=== PATIENT | female | born 1995 | race Caucasian/White ===

== ENCOUNTER 2019-06-16 19:47 | Observation (INO) | payer BC, SELFPAY ==
--- NOTE | 2019-06-16 19:47 | OBADM ---
This patient, Rosana Marrero, admitted to the OB room OB Post 115 for observation. Patient/family oriented to hospital policies and general routines including ID bracelet, bed and alarms, visiting hours, pain management, procedures, bathroom and other care routines, personal items, smoking policy, room service/diet, and visiting hours. Patient/Family are encouraged to report perceived risks to care and to ask questions if they do not understand what they are told or what they should do.
[2019-06-16 19:50] VITALS: BMI 39.5
[2019-06-16 20:00] VITALS: RESP 20; TEMP 36.8
[2019-06-16 20:29] VITALS: BP 146/85; PULSE 82
[2019-06-16 20:46] VITALS: BP 145/77; PULSE 79
[2019-06-16 22:03] VITALS: BP 144/81; PULSE 78
[2019-06-16 22:31] VITALS: BP 121/71; PULSE 92
--- NOTE | 2019-07-13 17:19 | PM.OBTRLD ---
OB - Triage/Final Diagnosis Visit Information Date of evaluation: 06/16/19 Final Diagnosis (1) Fall (on) (from) other stairs and steps, sequela: Code(s): W10.8XXS - Fall (on) (from) other stairs and steps, sequela Status: Acute
== END 2019-06-16 23:13 | disposition home or self-care (01) ==
PROVIDERS: Admitting Provider Obstetrics & Gynecology; PCP Physician Assistant; Visit Provider Obstetrics & Gynecology
DX: O99.89 Other specified diseases and conditions complicating pregnancy, childbirth and the puerperium (principal); Z3A.30 30 weeks gestation of pregnancy; W10.9XXA Fall (on) (from) unspecified stairs and steps, initial encounter
CPT/HCPCS: G0378; G0379

== ENCOUNTER 2019-07-07 15:41 | Observation (INO) | payer BC, SELFPAY ==
[2019-07-07] VITALS (13 sets, daily range): BP systolic 140–181; BP diastolic 73–117; PULSE 74–95
[2019-07-07 16:32] LABS: Basophils Percent Auto 0.2 % (0.2-1.2); Eosinophils Absolute Auto 0.1 K/mm3 (0-0.3); Eosinophils Percent Auto 0.6 % (0-4.4); Hematocrit 37.1 % (37.0-47.0); Immature Granulocyte Absolute 0.15 K/mm3 (0.00-0.031); Immature Granulocyte Percent A 1.1 % (0-0.5); Lymphocytes Absolute Auto 2.25 K/mm3 (0.9-3.2); Lymphocytes Percent Auto 16.8 % (18.3-44.2); Mean Corpuscular HGB Conc 32.3 g/dl (32-36); Mean Corpuscular Hemoglobin 28.4 pg (26-34); Mean Corpuscular Volume 87.9 fl (80-100); Mean Platelet Volume 11.1 fl (7.4-10.4); Monocytes Absolute Auto 1.2 K/mm3 (0.1-0.6); Monocytes Percent Auto 8.9 % (2.6-8.5); Neutrophils Absolute Auto 9.7 K/mm3 (1.3-6.7); Neutrophils Percent Auto 72.4 % (45.5-73.1); Platelet Count Result 207 k/mm3 (150-375); Red Blood Count 4.22 M/mm3 (4.2-5.4); Red Cell Distribution Width 14.4 % (11.5-14.5); White Blood Count 13.4 K/mm3 (4.5-10.0)
[2019-07-07] MEDS: LABETALOL HCL 100 MG TABLET PO (16:40)
[2019-07-07 16:47] LABS: Add Urine Microscopic? YES; Appearance Urine Cloudy (Clear); Bacteria Urine 4+ /hpf; Bilirubin Urine Negative (Negative); Blood Urine 1+ (Negative); Budding Yeast Urine Present /hpf; Color Urine Yellow (Yellow); Glucose Urine UA Negative (Negative); Ketones Urine Negative (Negative); Leukocyte Esterase Ur Negative LEU/UL (NEGATIVE); Mucus Urine Rare /lpf; Nitrate Urine Negative (Negative); Protein Urine 3+ mg/dL (Negative); Specific Grav Ur 1.024 (1.001-1.035); Squamous Epithelial Cell Urine Many /hpf (Few); Urobilinogen Urine Negative mg/dL (<2.0); WBC Clumps Urine Present /HPF; WBC Urine 16-20 /hpf (0-3)
[2019-07-07 16:52] LABS: Alanine Aminotransferase 13 U/L (4-35); Albumin Level 2.8 g/dL (3.5-5.1); Alkaline Phosphatase 128 U/L (38-126); Aspartate Amino Transferase 17 U/L (14-36); Bilirubin,Total 0.1 mg/dL (0.2-1.3); Blood Urea Nitrogen 10 mg/dL (7-17); Calcium 9.3 mg/dL (8.4-10.2); Carbon Dioxide 23 mmol/L (22-30); Chloride 110 mmol/L (98-107); Estimated Glomerular Filt Rate > 60; Glucose 67 mg/dL (65-105); Potassium 4.2 mmol/L (3.4-5.0); Sodium 134 mmol/L (137-145); Uric Acid 6.3 mg/dL (2.5-7.5)
[2019-07-07 16:58] LABS: Creatinine Urine 136.7 mg/dL
[2019-07-07 17:07] LABS: Total Protein Urine Random 479 mg/dL
--- NOTE | 2019-07-07 17:08 | OBADM ---
This patient, Rosana Marrero, admitted to the OB room OB Post 115 for observation. Patient is oriented to hospital policies and general routines including ID bracelet, bed and alarms, visiting hours, pain management, procedures, bathroom and other care routines, personal items, smoking policy, room service/diet, call light, and visiting hours. Patient is encouraged to report perceived risks to care and to ask questions if she does not understand what she are told or what she should do.
[2019-07-07] MEDS: BETAMETHASONE SOD PHOS/ACETATE 30 MG/5 ML VIAL 12 MG IM (18:03)
[2019-07-07] MEDS: CALCIUM CARBONATE (TUMS) 500 MG (200 MG ELEMENTAL) PO (18:25)
[2019-07-08] VITALS (7 sets, daily range): BP systolic 130–158; BP diastolic 71–92; PULSE 76–104; RESP 18; TEMP 36.9
--- NOTE | 2019-07-08 04:22 | PC.NURSE ---
0240- S Macario GODINEZ phoned in for status. Report given. Orders received to let patient rest the remainder of night and to recheck blood pressure in the morning.
[2019-07-08 09:06] LABS: Basophils Percent Auto 0.2 % (0.2-1.2); Hematocrit 37.9 % (37.0-47.0); Hemoglobin 12.4 g/dL (12.0-15.0); Immature Granulocyte Absolute 0.23 K/mm3 (0.00-0.031); Immature Granulocyte Percent A 1.3 % (0-0.5); Lymphocytes Absolute Auto 1.17 K/mm3 (0.9-3.2); Lymphocytes Percent Auto 6.6 % (18.3-44.2); Mean Corpuscular HGB Conc 32.7 g/dl (32-36); Mean Corpuscular Hemoglobin 28.8 pg (26-34); Mean Corpuscular Volume 88.1 fl (80-100); Mean Platelet Volume 11.4 fl (7.4-10.4); Monocytes Absolute Auto 0.7 K/mm3 (0.1-0.6); Monocytes Percent Auto 3.7 % (2.6-8.5); Neutrophils Absolute Auto 15.6 K/mm3 (1.3-6.7); Neutrophils Percent Auto 88.2 % (45.5-73.1); Nucleated Red Blood Cells Perc 0.1 % (0.0-0.2); Platelet Count Result 218 k/mm3 (150-375); Red Cell Distribution Width 14.6 % (11.5-14.5); White Blood Count 17.7 K/mm3 (4.5-10.0)
[2019-07-08 09:15] LABS: Potassium 4.5 mmol/L (3.4-5.0)
[2019-07-08 09:25] LABS: Alanine Aminotransferase 15 U/L (4-35); Albumin Level 2.7 g/dL (3.5-5.1); Alkaline Phosphatase 127 U/L (38-126); Aspartate Amino Transferase 17 U/L (14-36); Bilirubin,Total 0.1 mg/dL (0.2-1.3); Blood Urea Nitrogen 14 mg/dL (7-17); Calcium 9.2 mg/dL (8.4-10.2); Carbon Dioxide 19 mmol/L (22-30); Chloride 108 mmol/L (98-107); Estimated Glomerular Filt Rate > 60; Glucose 114 mg/dL (65-105); Sodium 135 mmol/L (137-145); Uric Acid 7.2 mg/dL (2.5-7.5)
--- NOTE | 2019-07-08 10:03 | PM.IMHP ---
H&P: HPI History of Present Illness Chief complaint: blood pressure Narrative: Rosana Marrero is a 24 year old female, G 2 P0, who was sent to on 07/07/2019 after having elevated pressures at the office. Upon arrival pt had 2 severe range pressures and was given 100mg labetalol while IV access was being attained. Labs reviewed and uric acid elevated, protein creatinine ratio >3.0. Pt remains asymptomatic with pressures overnight in the 130-140/80-90's. Upon awakening pressures back up to 150/90's. Pt primary physician is Dr. Hong. Review of Systems Review of Systems: All systems reviewed & are unremarkable except as noted in HPI and below Constitutional: Constitutional: Reports as per HPI Cardiovascular: Cardiovascular: Reports as per HPI Respiratory: Respiratory: Reports as per HPI Gastrointestinal: Gastrointestinal: Reports as per HPI Genitourinary: Genitourinary: Reports as per HPI Musculoskeletal: Musculoskeletal: Reports as per HPI Psychiatric: Psychiatric: Reports as per HPI [facility] Family History Family History (Updated 01/30/15 @ 10:13 by DOCTOR UNKNOWN) Mother Family history of thyroid disease Other Diabetes mellitus Family history of cardiovascular disease Family history of malignant neoplasm Hypertension Social History Social History Smoking status: Never smoker Alcohol intake: never Meds Home Medications and Allergies Home Medications Medication Instructions Recorded Confirmed Type 400 mcg PO DAILY 06/16/19 06/16/19 History Allergies Allergy/AdvReac Type Severity Reaction Status Date / Time No Known Allergies Allergy Unverified 08/11/11 12:54 Vital Signs Vital Signs - 24 hr 07/07/19 15:57 07/07/19 15:59 07/07/19 16:16 Temperature Pulse Rate 82 83 92 Respiratory Rate Blood Pressure 181/117 H 171/89 H 165/101 H 07/07/19 16:30 07/07/19 16:59 07/07/19 17:30 Temperature Pulse Rate 83 86 76 Respiratory Rate Blood Pressure 162/102 H 151/90 H 155/101 H 07/07/19 18:01 07/07/19 19:51 07/07/19 20:10 Temperature Pulse Rate 74 88 83 Respiratory Rate Blood Pressure 153/83 H 160/106 H 156/93 H 07/07/19 20:15 07/07/19 22:06 07/07/19 22:15 Temperature Pulse Rate 84 95 90 Respiratory Rate Blood Pressure 156/94 H 155/104 H 147/95 H 07/07/19 23:49 07/08/19 01:50 07/08/19 07:20 Temperature 36.9 C Pulse Rate 86 76 84 Respiratory Rate 18 Blood Pressure 140/73 133/72 137/80 07/08/19 09:43 Temperature Pulse Rate 83 Respiratory Rate Blood Pressure 158/92 H Exam Const: General: no acute distress Eyes: General: appearance normal, both eyes and all related structures Resp: Auscultation: clear to auscultation bilaterally Cardio: Rate: regular rate GI: GI Palp: Yes Soft to palpation : External Female Exam: normal external appearance Skin: General skin exam: normal color Extrem: Left lower extremity: ankle and foot (2+ bilateral edema) Psych: Mental Status: mental status grossly normal Affect: normal affect H&P: Results Labs Labs: Short CBC 07/07/19 07/08/19 Range/Units 16:16 08:55 WBC 13.4 H 17.7 H (4.5-10.0) K/mm3 Hgb 12.0 12.4 (12.0-15.0) g/dL Hct 37.1 37.9 (37.0-47.0) % Plt Count 207 218 (150-375) k/mm3 BMP 07/07/19 07/08/19 16:16 08:55 Sodium 134 L 135 L Potassium 4.2 4.5 Chloride 110 H 108 H Carbon Dioxide 23 19 L BUN 10 14 Creatinine 0.70 0.70 Glucose 67 114 H Calcium 9.3 9.2 Liver Function 07/07/19 07/08/19 Range/Units 16:16 08:55 Total Bilirubin 0.1 L 0.1 L (0.2-1.3) mg/dL AST 17 17 (14-36) U/L ALT 13 15 (4-35) U/L Alkaline Phosphatase 128 H 127 H (38-126) U/L Albumin 2.8 L 2.7 L (3.5-5.1) g/dL Urine 07/07/19 Range/Units 16:16 Urine Color Yellow (Yellow) Urine Appearance Cloudy H (Clear) Urine pH 6.0 (5.0-9.0) Ur Specific [place] 1.024 (1.001-1.035) Urine Prot
[2019-07-08] MEDS: BETAMETHASONE SOD PHOS/ACETATE 30 MG/5 ML VIAL 12 MG IM (17:40)
--- NOTE | 2019-07-08 17:52 | PC.NURSE ---
6800- Spoke with Ayse Sorto CNM, BP's reviewed. Orders to discharge patient home with 24 hour urine and Precautions.
== END 2019-07-08 17:45 | disposition home or self-care (01) ==
LOC: ANHOBOP 15:47 → ANHOBPP 15:48 → ANHOBOP 16:37 → ANHOBPP 16:37
PROVIDERS: Advanced Practice Midwife; Admitting Provider Obstetrics & Gynecology; PCP Physician Assistant; Visit Provider Obstetrics & Gynecology
DX: O14.03 Mild to moderate pre-eclampsia, third trimester (principal); Z3A.33 33 weeks gestation of pregnancy
CPT/HCPCS: 36415; 59025; 80053; 81001; 82570; 84156; 84550; 85025; 87086; 87088; 96372; A9270; G0378; G0379; J0702

== ENCOUNTER 2019-07-09 11:45 | Outpatient (CLI) | payer BC, SELFPAY ==
[2019-07-09 11:59] VITALS: BMI 20.7
[2019-07-09 12:46] LABS: Collection Time Urine 24 HOURS
[2019-07-09 12:50] LABS: Total Volume 24 Hour Urine 850 ml
[2019-07-09 12:51] LABS: Patient Weight 117 Lbs
[2019-07-09 13:06] LABS: Creatinine Clearance Urine 180.4 ml/min (75-125); Creatinine Urine 189.8 mg/dL; Total Protein Urine Random 126 mg/dL
[2019-07-09 13:13] LABS: Total Protein Urine 24 Hr 1071 MG/DAY (28-141)
== END 2019-07-09 11:46 | disposition home or self-care (01) ==
LOC: ANHOBOP 11:53
PROVIDERS: PCP Physician Assistant; Visit Provider Obstetrics & Gynecology
DX: O13.9 Gestational [pregnancy-induced] hypertension without significant proteinuria, unspecified trimester (principal); Z3A.00 Weeks of gestation of pregnancy not specified
CPT/HCPCS: 81050; 82575; 84156

== ENCOUNTER 2019-07-10 17:04 | Inpatient (IN) | payer BC, MEDICAID, SELFPAY ==
[2019-07-10] VITALS (24 sets, daily range): BP systolic 148–177; BP diastolic 84–108; PULSE 58–94; BMI 48.0
[2019-07-10 18:34] LABS: Hemoglobin 11.3 g/dL (12.0-15.0); Mean Corpuscular HGB Conc 32.3 g/dl (32-36); Mean Corpuscular Hemoglobin 28.9 pg (26-34); Mean Corpuscular Volume 89.5 fl (80-100); Mean Platelet Volume 11.4 fl (7.4-10.4); Platelet Count Result 212 k/mm3 (150-375); Red Blood Count 3.91 M/mm3 (4.2-5.4); Red Cell Distribution Width 14.6 % (11.5-14.5); White Blood Count 15.8 K/mm3 (4.5-10.0)
[2019-07-10 18:41] LABS: Alanine Aminotransferase 21 U/L (4-35); Albumin Level 2.6 g/dL (3.5-5.1); Alkaline Phosphatase 120 U/L (38-126); Aspartate Amino Transferase 25 U/L (14-36); Bilirubin,Total 0.2 mg/dL (0.2-1.3); Blood Urea Nitrogen 15 mg/dL (7-17); Calcium 8.4 mg/dL (8.4-10.2); Carbon Dioxide 23 mmol/L (22-30); Chloride 110 mmol/L (98-107); Estimated Glomerular Filt Rate > 60; Glucose 68 mg/dL (65-105); Potassium 3.8 mmol/L (3.4-5.0); Sodium 133 mmol/L (137-145); Uric Acid 7.6 mg/dL (2.5-7.5)
--- NOTE | 2019-07-10 19:05 | LDADM ---
This patient, Rosana Marrero, was admitted to Labor/Delivery/Recovery 105 on 07/10/19 at 19:05. Plans for labor, pain management and were discussed with patient. Patient/family oriented to hospital policies and general routines including ID bracelet, bed and alarms, visiting hours, pain management, procedures, bathroom and other care routines, personal items, smoking policy, room service/diet and guest tray routines, security routines, and visiting hours. Patient/Family are encouraged to report perceived risks to care and to ask questions if they do not understand what they are told or what they should do. See OBIX for further documentation.
[2019-07-10 19:21] LABS: Band Neutrophils Percent 2 % (0-6); Lymphocytes Absolute Manual 1.89 K/mm3 (1.1-4.5); Monocytes Percent Manual 7 % (3-9); Neutrophils Absolute Manual 12.79 K/mm3 (1.7-7.2); Neutrophils Percent Manual 79 % (46-73); Platelet Estimate Adequate (Adequate); Total Cells Counted 100
[2019-07-10 19:22] LABS: Hypochromasia 1+ (NORMAL)
[2019-07-10] MEDS: MAGNESIUM SULF 4 GM/WATER100ML 4 GM/100 ML BAG IVPB (20:35)
[2019-07-10] MEDS: LACTATED RINGERS 1,000 ML 75 ML IV CONT (20:35)
[2019-07-10] MEDS: DINOPROSTONE 10 MG VAG INSERT VAGINAL (20:42)
[2019-07-10] MEDS: MAGNESIUM SULF 20GM/WATER500ML 500 ML 50 MG IV CONT (22:09)
[2019-07-11] VITALS (169 sets, daily range): BP systolic 131–174; BP diastolic 73–123; PULSE 72–116; RESP 16; TEMP 36.7–37.4; O2SAT 92–100
[2019-07-11 05:38] LABS: Basophils Absolute Auto 0.1 K/mm3 (0.0-0.1); Basophils Percent Auto 0.5 % (0.2-1.2); Eosinophils Percent Auto 0.1 % (0-4.4); Hematocrit 37.5 % (37.0-47.0); Hemoglobin 12.1 g/dL (12.0-15.0); Immature Granulocyte Absolute 0.94 K/mm3 (0.00-0.031); Immature Granulocyte Percent A 5.8 % (0-0.5); Lymphocytes Absolute Auto 2.16 K/mm3 (0.9-3.2); Lymphocytes Percent Auto 13.3 % (18.3-44.2); Mean Corpuscular HGB Conc 32.3 g/dl (32-36); Mean Corpuscular Hemoglobin 28.7 pg (26-34); Mean Corpuscular Volume 88.9 fl (80-100); Mean Platelet Volume 11.4 fl (7.4-10.4); Monocytes Absolute Auto 1.3 K/mm3 (0.1-0.6); Monocytes Percent Auto 8.1 % (2.6-8.5); Neutrophils Absolute Auto 11.7 K/mm3 (1.3-6.7); Neutrophils Percent Auto 72.2 % (45.5-73.1); Nucleated Red Blood Cells Absolute Auto 0.1 K/mm3 (0.0-0.012); Nucleated Red Blood Cells Perc 0.4 % (0.0-0.2); Platelet Count Result 227 k/mm3 (150-375); Red Blood Count 4.22 M/mm3 (4.2-5.4); Red Cell Distribution Width 14.6 % (11.5-14.5); White Blood Count 16.2 K/mm3 (4.5-10.0)
[2019-07-11 05:49] LABS: Alanine Aminotransferase 45 U/L (4-35); Albumin Level 2.7 g/dL (3.5-5.1); Alkaline Phosphatase 143 U/L (38-126); Aspartate Amino Transferase 49 U/L (14-36); Bilirubin,Total 0.2 mg/dL (0.2-1.3); Blood Urea Nitrogen 15 mg/dL (7-17); Calcium 7.8 mg/dL (8.4-10.2); Carbon Dioxide 22 mmol/L (22-30); Chloride 108 mmol/L (98-107); Estimated CRCL calculation 122 ml/min; Estimated Glomerular Filt Rate > 60; Glucose 86 mg/dL (65-105); Potassium 3.9 mmol/L (3.4-5.0); Sodium 132 mmol/L (137-145); Uric Acid 7.8 mg/dL (2.5-7.5)
--- NOTE | 2019-07-11 07:48 | PM.IMHP ---
H&P: HPI History of Present Illness Chief complaint: Elevated BP Narrative: Rosana Marrero is a 24 year old female 1 at 34 weeks gestation who presented to the office yesterday with severe range blood pressures. She also reported headache. She reported good movement. She denies any contractions, loss of fluid, vaginal bleeding. She was seen 4-5 days earlier for elevated blood pressures and was admitted for observation. She was given steroids at that admission. She was discharged with short-term follow-up. Then she presented yesterday. Review of Systems Constitutional: Constitutional: Reports no additional constitutional complaints, Denies fatigue, Denies headache(s), Denies lethargy and Denies weakness Eyes: Eyes: Reports no additional eye complaints, Denies blurry vision and Denies photophobia ENT: Reports as per HPI, Denies headache(s) and Denies neck pain Cardiovascular: Cardiovascular: Denies chest pain, Denies diaphoresis, Denies leg edema, Denies palpitations and Denies dyspnea Respiratory: Respiratory: Denies hemoptysis, Denies dyspnea and Denies wheezing Gastrointestinal: Gastrointestinal: Denies abdominal pain, Denies melena, Denies bloating, Denies hematochezia, Denies nausea and Denies vomiting Genitourinary: Genitourinary: Reports no additional female genitourinary complaints Musculoskeletal: Musculoskeletal: Denies joint swelling, Denies neck pain, Denies numbness and Denies stiffness Neurologic: Denies Abnormal speech present, Denies confusion, Denies numbness and Denies weakness Psychiatric: Psychiatric: Denies anxiety, Denies confusion, Denies depression, Denies homicidal ideation and Denies suicidal ideation Endocrine: Endocrine: Denies fatigue and Denies palpitations Allergic/Immunologic: Allergic/Immunologic: Denies wheezing [facility] Family History Family History (Updated 01/30/15 @ 10:13 by DOCTOR UNKNOWN) Mother Family history of thyroid disease Other Diabetes mellitus Family history of cardiovascular disease Family history of malignant neoplasm Hypertension Social History Social History Smoking status: Never smoker Alcohol intake: never Substance use: never Gender identity (if verbalized by the patient): Female Spiritual care concerns: No Meds Home Medications and Allergies Home Medications Medication Instructions Recorded Confirmed Type 400 mcg PO DAILY 06/16/19 07/10/19 History Allergies Allergy/AdvReac Type Severity Reaction Status Date / Time No Known Allergies Allergy Unverified 08/11/11 12:54 Vital Signs Vital Signs - 24 hr 07/10/19 17:20 07/10/19 17:30 07/10/19 17:45 Temperature Pulse Rate 74 70 69 Respiratory Rate Blood Pressure 173/108 H 165/105 H 151/101 H Blood Pressure [Left Arm] 07/10/19 18:00 07/10/19 18:07 07/10/19 18:15 Temperature Pulse Rate 64 74 61 Respiratory Rate Blood Pressure 148/105 H 161/94 H Blood Pressure [Left Arm] 173/108 H 07/10/19 18:31 07/10/19 18:46 07/10/19 19:01 Temperature Pulse Rate 65 60 58 L Respiratory Rate Blood Pressure 168/104 H 157/93 H 150/99 H Blood Pressure [Left Arm] 07/10/19 19:16 07/10/19 19:46 07/10/19 20:31 Temperature Pulse Rate 65 77 78 Respiratory Rate Blood Pressure 158/103 H 177/102 H 170/106 H Blood Pressure [Left Arm] 07/10/19 21:01 07/10/19 21:16 07/10/19 21:31 Temperature Pulse Rate 80 83 83 Respiratory Rate Blood Pressure 157/89 H 161/91 H 162/91 H Blood Pressure [Left Arm] 07/10/19 21:46 07/10/19 22:01 07/10/19 22:16 Temperature Pulse Rate 79 75 77 Respiratory Rate Blood Pressure 158/90 H 163/96 H 158/94 H Blood Pressure [Left Arm] 07/10/19 22:31 07/10/19 22:46 07/10/19 23:01 Temperature Pulse Rate 76 89 83 Respiratory Rate Blood Pressure 164/91 H 159/94 H 159/93 H Blood Pressure [Left Arm] 07/10/19 23:16 07/10/19 23:31 07/10/19 2
[2019-07-11] MEDS: AMPICILLIN 2 GM/NS 100 ML 2 GM/100 ML BAG IVPB (08:00)
[2019-07-11] MEDS: LACTATED RINGERS 1,000 ML 75 ML IV CONT ×2 (08:00→16:37)
[2019-07-11] MEDS: MAGNESIUM SULF 20GM/WATER500ML 500 ML 50 MG IV CONT ×2 (08:02→18:26)
[2019-07-11] MEDS: NIFEdipine 30 MG TAB.ER.24 60 MG PO (08:03)
[2019-07-11] MEDS: ACETAMINOPHEN 500 MG TABLET 1000 MG PO (08:48)
[2019-07-11] MEDS: OXYTOCIN 30 UNITS/NS 500 ML 30 UNITS/500 ML BAG 125 UNITS IV CONT ×2 (08:55→17:59)
[2019-07-11] MEDS: LABETALOL HCL INJ 100 MG/20 ML VIAL 20 MG IV PUSH (10:19)
--- NOTE | 2019-07-11 10:31 | WPDANESEPP ---
Anes - Eval Pre Procedure Procedure: labor epidural Date/Time: 07/11/19 10:31 Surgeon: juice Preop Diagnosis: labor pain Pre Op Diagnosis: Elevated BP Patient Data Age: 24 Gender: F Height: 1.6 m Weight: 123 kg Last Vital Signs Temp 37.0 C 07/11/19 07:54 Pulse 85 07/11/19 10:23 Resp 16 07/11/19 04:30 BP 159/93 H 07/11/19 10:23 Allergies Allergy/AdvReac Type Severity Reaction Status Date / Time No Known Allergies Allergy Unverified 08/11/11 12:54 Home Medications Medication Instructions Recorded Confirmed Type 400 mcg PO DAILY 06/16/19 07/10/19 History Laboratory Tests 07/10/19 07/10/19 07/10/19 18:23 18:23 20:22 WBC 15.8 K/mm3 H K/mm3 (4.5-10.0) RBC 3.91 M/mm3 L M/mm3 (4.2-5.4) Hgb 11.3 g/dL L g/dL (12.0-15.0) Hct 35.0 % L % (37.0-47.0) MCV 89.5 fl fl (80-100) MCH 28.9 pg pg (26-34) MCHC 32.3 g/dl g/dl (32-36) RDW 14.6 % H % (11.5-14.5) Plt Count 212 k/mm3 k/mm3 (150-375) MPV 11.4 fl H fl (7.4-10.4) Immature Gran % (Auto) Not Reportable Neut % (Auto) Not Reportable Lymph % (Auto) Not Reportable [place] % (Auto) Not Reportable Eos % (Auto) Not Reportable Baso % (Auto) Not Reportable Lymph # (Auto) Not Reportable [place] # (Auto) Not Reportable Eos # (Auto) Not Reportable Baso # (Auto) Not Reportable Abs Immat Gran (auto) Not Reportable Absolute Neuts (auto) Not Reportable Absolute Nucleated RBC Not Reportable Total Counted 100 Neutrophils % (Manual) 79 % H % (46-73) Band Neutrophils % 2 % % (0-6) Lymphocytes % (Manual) 12.0 % L % (18-44) Monocytes % (Manual) 7 % % (3-9) Nucleated RBC % Not Reportable Abs Neuts (Manual) 12.79 K/mm3 H K/mm3 (1.7-7.2) Abs Lymphs (Manual) 1.89 K/mm3 K/mm3 (1.1-4.5) Abs Monocytes (Manual) 1.10 K/mm3 H K/mm3 (0.1-0.90) Platelet Estimate Adequate (Adequate) Hypochromasia 1+ (NORMAL) Sodium 133 mmol/L L mmol/L (137-145) Potassium 3.8 mmol/L mmol/L (3.4-5.0) Chloride 110 mmol/L H mmol/L (98-107) Carbon Dioxide 23 mmol/L mmol/L (22-30) BUN 15 mg/dL mg/dL (7-17) Creatinine 0.70 mg/dL mg/dL (0.7-1.0) Estim Creat Clear Calc Not Reportable Estimated GFR > 60 (59 - ) Glucose 68 mg/dL mg/dL (65-105) Uric Acid 7.6 mg/dL H mg/dL (2.5-7.5) Calcium 8.4 mg/dL mg/dL (8.4-10.2) Total Bilirubin 0.2 mg/dL mg/dL (0.2-1.3) AST 25 U/L U/L (14-36) ALT 21 U/L U/L (4-35) Alkaline Phosphatase 120 U/L U/L (38-126) Total Protein 6.0 g/dL L g/dL (6.3-8.2) Albumin 2.6 g/dL L g/dL (3.5-5.1) RPR Pending Blood Type Antibody Screen 07/10/19 07/11/19 07/11/19 20:22 05:15 05:15 WBC 16.2 K/mm3 H K/mm3 (4.5-10.0) RBC 4.22 M/mm3 M/mm3 (4.2-5.4) Hgb 12.1 g/dL g/dL (12.0-15.0) Hct 37.5 % % (37.0-47.0) MCV 88.9 fl fl (80-100) MCH 28.7 pg pg (26-34) MCHC 32.3 g/dl g/dl (32-36) RDW 14.6 % H % (11.5-14.5) Plt Count 227 k/mm3 k/mm3 (150-375) MPV 11.4 fl H fl (7.4-10.4) Immature Gran % (Auto) 5.8 % H % (0-0.5) Neut % (Auto) 72.2 % % (45.5-73.1) Lymph % (Auto) 13.3 % L % (18.3-44.2) [place] % (Auto) 8.1 % % (2.6-8.5) Eos % (Auto) 0.1 % % (0-4.4) Baso % (Auto) 0.5 % % (0.2-1.2) Lymph # (Auto) 2.16 K/mm3 K/mm3 (0.9-3.2) [place] # (Auto) 1.3 K/mm3 H K/mm3 (0.
[2019-07-11 11:09] LABS: Rapid Plasma Reagin Non-Reactive (NonReactive)
[2019-07-11] MEDS: AMPICILLIN 1 GM/NS 50 ML 1 GM/50 ML BAG IVPB ×2 (12:22→16:37)
[2019-07-11 12:34] LABS: Mean Platelet Volume 10.9 fl (7.4-10.4); Platelet Count Result 105 k/mm3 (150-375)
[2019-07-11 16:49] LABS: Mean Platelet Volume 11.3 fl (7.4-10.4); Platelet Count Result 260 k/mm3 (150-375)
[2019-07-11 17:08] LABS: Alanine Aminotransferase 53 U/L (4-35); Albumin Level 2.9 g/dL (3.5-5.1); Alkaline Phosphatase 168 U/L (38-126); Aspartate Amino Transferase 47 U/L (14-36); Bilirubin,Total 0.4 mg/dL (0.2-1.3); Blood Urea Nitrogen 14 mg/dL (7-17); Calcium 7.1 mg/dL (8.4-10.2); Carbon Dioxide 20 mmol/L (22-30); Chloride 105 mmol/L (98-107); Estimated CRCL calculation 122 ml/min; Estimated Glomerular Filt Rate > 60; Glucose 88 mg/dL (65-105); Magnesium 6.2 mg/dL (1.6-2.3); Sodium 129 mmol/L (137-145); Uric Acid 7.8 mg/dL (2.5-7.5)
--- NOTE | 2019-07-11 17:46 | PM.OBPRVD ---
OB - Delivery Note Procedure Delivery date: 07/11/19 events: Pre-Eclampsia Intrapartal events: None and Severe Preeclampsia Induction method: none (Cervidil), AROM and per pitocin protocol Delivery monitor: external FHT and external uterine Route of delivery: Episiotomy description: None Laceration description: Perineal - 2nd Degree Delivery repair: vicryl Specimen: Yes Estimated blood loss (mL): 375 Anesthesia type: Epidural Disposition: floor [place] Baby Date of : 07/11/19 Time of : 17:32 Weeks of gestation at delivery: 34 gender: Female Weight (pounds): 4 Weight (ounces): 7 Placenta delivery description: Spontaneous cord vessel description: 3 Vessels score one minute: 8 score five minutes: 9
--- NOTE | 2019-07-11 20:27 | PC.NURSE ---
Patient transferred to post room #282 via wheelchair. Support person present. Oriented to unit, room, information board, rooming in, admission packet and security measures. Patient verbalizes understanding. warming up after bath.
[2019-07-11] MEDS: IBUPROFEN 600 MG TABLET PO (22:30)
[2019-07-12] VITALS (8 sets, daily range): BP systolic 141–162; BP diastolic 90–111; PULSE 79–98; RESP 16–18; TEMP 36.5–37.3; O2SAT 96–98
[2019-07-12] MEDS: MAGNESIUM SULF 20GM/WATER500ML 500 ML 50 MG IV CONT ×2 (04:26→14:12)
[2019-07-12 05:20] LABS: Hematocrit 33.8 % (37.0-47.0); Hemoglobin 11.2 g/dL (12.0-15.0)
--- NOTE | 2019-07-12 07:43 | WPDHPUPDATE1 ---
History and Physical Update Update Date/Time: 07/12/19 07:43 History and Physical has been reviewed, including an updated exam of the patient. There are NO changes in the patient's condition. Risks, benefits, and alternatives have been discussed and questions answered. Patient agrees to proceed with procedure.
--- NOTE | 2019-07-12 07:50 | PM.OBPNVD ---
OB - PN: Subj Subjective Date/time seen: 07/12/19 07:50 Patient comments: no complaints, pain well controlled, incisional pain, tolerating diet and flatus present OB - PN: Obj Data Labs CBC & Chem 7: 07/12/19 04:33 07/11/19 16:35 Labs: Laboratory Results - last 24 hr 07/10/19 07/11/19 07/11/19 20:22 12:09 12:09 Hgb Hct Plt Count 105 L D MPV 10.9 H Sodium 109 L* Potassium 3.1 L Chloride 89 L Carbon Dioxide 10 L BUN 6 L D Creatinine 0.30 L Estim Creat Clear Calc 291 Estimated GFR > 60 Glucose 41 L* Uric Acid 3.2 Calcium 5.2 L Magnesium Total Bilirubin < 0.1 L AST 19 ALT 20 Alkaline Phosphatase 72 Total Protein 2.4 L Albumin 1.0 L RPR Non-reactive 07/11/19 07/11/19 07/11/19 16:35 16:35 16:35 Hgb Hct Plt Count 260 D MPV 11.3 H Sodium 129 L Potassium 4.0 Chloride 105 Carbon Dioxide 20 L BUN 14 D Creatinine 0.80 Estim Creat Clear Calc 122 Estimated GFR > 60 Glucose 88 Uric Acid 7.8 H Calcium 7.1 L Magnesium 6.2 H Cancelled Total Bilirubin 0.4 AST 47 H ALT 53 H Alkaline Phosphatase 168 H Total Protein 6.0 L Albumin 2.9 L RPR 07/12/19 04:33 Hgb 11.2 L Hct 33.8 L Plt Count MPV Sodium Potassium Chloride Carbon Dioxide BUN Creatinine Estim Creat Clear Calc Estimated GFR Glucose Uric Acid Calcium Magnesium Total Bilirubin AST ALT Alkaline Phosphatase Total Protein Albumin RPR OB - PN A/P Assessment and Plan (1) Preeclampsia, severe: Code(s): O14.10 - Severe pre-eclampsia, unspecified trimester Status: Acute (2) delivery: Code(s): O60.10X0 - labor with delivery, unspecified trimester, not applicable or unspecified Status: Acute Assessment and Plan: BP's reasonable, output uncreasing per patient, no neuro sign/ sx's - to d/c mag at 24 hour Plan day: 1 Plan: routine care Comments: No problems, routine care Time Spent With Patient Time: Total time spent is greater than 50% in coordination of care (as documented) at patient's floor/unit and/or counseling patient: Exam Const: General: comfortable, no acute distress and alert Resp: Effort & Inspection: normal respiratory effort Auscultation: no crackles, no rales and no rhonchi Cardio: Rate: regular rate Heart sounds: no click, no murmurs and no rubs GI: Inspection: non-distended GI Palp: No Tenderness to palpation present (GI) Auscultation: normal bowel sounds Other: Incision - CDI Extrem: General: normal to inspection, no pedal edema and no calf tenderness
[2019-07-12] MEDS: DOCUSATE SODIUM 100 MG CAPSULE PO (08:26)
[2019-07-12] MEDS: LACTATED RINGERS 1,000 ML 75 ML IV CONT (08:26)
[2019-07-12] MEDS: MULTIVIT/MIN/PREN/FOL AC/IRON TABLET 1 TAB PO (08:26)
--- NOTE | 2019-07-12 09:44 | WPDANLDPN2 ---
Anes-Prog Note L&D Date/Time: 07/12/19 09:44 Comfortable throughout: labor and delivery Neuraxial method: epidural Epidural/Spinal procedure site: clean & non-tender Neuro status: Neuro function grossly intact. Cardiovascular status: normal Respiratory status: normal Airway patency: baseline Mental status: baseline Post-Op hydration status: normal Vital Signs: Last Vital Signs Temp 99.2 F 07/12/19 07:50 Pulse 90 07/12/19 07:50 Resp 16 07/12/19 07:50 BP 162/105 H 07/12/19 07:50 Pulse Ox 98 07/12/19 07:50 I/O: Intake & Output 07/11/19 07/12/19 07/12/19 23:59 07:59 15:59 Intake Total 2050 500 Output Total 850 Balance 1200 500 Post-procedural complaints: none Patient feedback: Patient satisfied with anesthetic care.
--- NOTE | 2019-07-12 10:30 | PC.NURSE ---
Consult with pt. mother reports infant has been sleepy last two feedings. Mother puts to breast each feeding and will then pump offering EBM as available. Mother pumped and nippled 1.5 mls of EBM this feeding. Discussed the early 24 week infant. Infant may tire easily, have inconsistent feedings and have a weak. Mother is very tired from delivery and is on Mag. Sulfate. Mother wishes to be bottle fed this feeding and she will pump. Advised mother she can pump every other feeding if she is feeling tired and weak.
[2019-07-12 14:55] LABS: Alanine Aminotransferase 34 U/L (4-35); Albumin Level 2.5 g/dL (3.5-5.1); Alkaline Phosphatase 140 U/L (38-126); Aspartate Amino Transferase 26 U/L (14-36); Bilirubin,Total 0.1 mg/dL (0.2-1.3); Blood Urea Nitrogen 10 mg/dL (7-17); Calcium 6.3 mg/dL (8.4-10.2); Carbon Dioxide 22 mmol/L (22-30); Chloride 109 mmol/L (98-107); Estimated CRCL calculation 122 ml/min; Estimated Glomerular Filt Rate > 60; Glucose 95 mg/dL (65-105); Potassium 3.9 mmol/L (3.4-5.0); Sodium 134 mmol/L (137-145)
[2019-07-12] MEDS: LABETALOL HCL 100 MG TABLET 300 MG PO (16:53)
[2019-07-13] VITALS (7 sets, daily range): BP systolic 138–153; BP diastolic 92–105; PULSE 76–88; RESP 16–18; TEMP 36.9–37.3; O2SAT 97–98
[2019-07-13] MEDS: IBUPROFEN 600 MG TABLET PO ×2 (04:08→11:01)
--- NOTE | 2019-07-13 07:56 | PM.OBPNVD ---
OB - PN: Subj Subjective Date/time seen: 07/13/19 07:57 Patient comments: no complaints, pain well controlled, incisional pain, tolerating diet and flatus present OB - PN: Obj Data Labs CBC & Chem 7: 07/12/19 04:33 07/12/19 13:31 Labs: Laboratory Results - last 24 hr 07/12/19 13:31 Sodium 134 L Potassium 3.9 Chloride 109 H Carbon Dioxide 22 BUN 10 Creatinine 0.80 Estim Creat Clear Calc 122 Estimated GFR > 60 Glucose 95 Calcium 6.3 L Total Bilirubin 0.1 L AST 26 ALT 34 Alkaline Phosphatase 140 H Total Protein 6.0 L Albumin 2.5 L OB - PN A/P Plan day: 1 Plan: routine care Comments: No problems, routine care, cnacelled tubal ligation. to d/c Time Spent With Patient Time: Total time spent is greater than 50% in coordination of care (as documented) at patient's floor/unit and/or counseling patient: Exam Const: General: comfortable, no acute distress and alert Resp: Effort & Inspection: normal respiratory effort Auscultation: no crackles, no rales and no rhonchi Cardio: Rate: regular rate Heart sounds: no click, no murmurs and no rubs GI: Inspection: non-distended GI Palp: No Tenderness to palpation present (GI) Auscultation: normal bowel sounds Other: Incision - CDI Extrem: General: normal to inspection, no pedal edema and no calf tenderness
--- NOTE | 2019-07-13 07:59 | PM.OBDSVD ---
DS: Diagnosis Admitting Diagnosis Admitting Diagnosis: Severe pre-eclampsia, unspecified trimester Discharge Diagnosis (1) Term delivered: Code(s): O80 - Encounter for full-term uncomplicated delivery Status: Acute OB - DS: Summary OB Procedures : None OB Procedures Intrapartum: Spontaneous Vag Delivery OB Procedures: : None Time Spent with Patient Time attestation: Total time spent providing and/or coordinating discharge services: DS: Data Data Completed and Pending Pending studies at discharge: Pending at discharge 07/11/19 17:36 Surgical [PTH] Routine Labs on day of discharge: Labs from last 24 hours 07/12/19 13:31 Sodium 134 L Potassium 3.9 Chloride 109 H Carbon Dioxide 22 BUN 10 Creatinine 0.80 Estim Creat Clear Calc 122 Estimated GFR > 60 Glucose 95 Calcium 6.3 L Total Bilirubin 0.1 L AST 26 ALT 34 Alkaline Phosphatase 140 H Total Protein 6.0 L Albumin 2.5 L Discharge Plan Discharge Discharging Clinician: Roderick Hong Patient Disposition: Home, Self-Care Activity: pelvic rest Diet: regular Patient Instructions: Antibiotic Form Stand Alone Forms: General Discharge Information Follow-up/Referrals: Roderick Hong MD [Physician] - Discharge Medications: Continued 400 mcg Tablet,Chewable 400 mcg PO DAILY RF: 0 Date of admission: 07/10/19 19:05 Primary Care Provider: Alisia,Marie Admitting Provider: Roderick Hong Attending physician on admission: Roderick Hong
--- NOTE | 2019-07-13 08:01 | PM.OBPNVD ---
OB - PN: Subj Subjective Date/time seen: 07/13/19 08:01 Patient comments: no complaints, pain well controlled and tolerating diet OB - PN: Obj Data Labs CBC & Chem 7: 07/12/19 04:33 07/12/19 13:31 Labs: Laboratory Results - last 24 hr 07/12/19 13:31 Sodium 134 L Potassium 3.9 Chloride 109 H Carbon Dioxide 22 BUN 10 Creatinine 0.80 Estim Creat Clear Calc 122 Estimated GFR > 60 Glucose 95 Calcium 6.3 L Total Bilirubin 0.1 L AST 26 ALT 34 Alkaline Phosphatase 140 H Total Protein 6.0 L Albumin 2.5 L OB - PN A/P Plan day: 2 Comments: HTN controlled on labetalol. Continues to diurese. Cont. obs. Time Spent With Patient Time: Total time spent is greater than 50% in coordination of care (as documented) at patient's floor/unit and/or counseling patient: Exam Const: General: comfortable and no acute distress Resp: Effort & Inspection: normal respiratory effort Auscultation: no rales, no rhonchi and no wheezes Cardio: Rate: regular rate Heart sounds: no click, no murmurs and no rubs GI: GI Palp: Yes Soft to palpation and No Tenderness to palpation present (GI) Auscultation: normal bowel sounds Extrem: General: normal to inspection, no pedal edema and no calf tenderness
[2019-07-13] MEDS: MULTIVIT/MIN/PREN/FOL AC/IRON TABLET 1 TAB PO (08:52)
[2019-07-13] MEDS: DOCUSATE SODIUM 100 MG CAPSULE PO (08:52)
[2019-07-13] MEDS: LABETALOL HCL 100 MG TABLET 300 MG PO ×2 (08:53→21:08)
[2019-07-14 00:22] VITALS: BP 139/82; PULSE 84; RESP 17; TEMP 36.9
[2019-07-14 05:40] VITALS: BP 145/99; PULSE 77; RESP 18; TEMP 37
[2019-07-14 07:40] VITALS: BP 146/105; PULSE 76; RESP 16; TEMP 36.8; O2SAT 98
--- NOTE | 2019-07-14 07:50 | PM.OBDSVD ---
DS: Diagnosis Admitting Diagnosis Admitting Diagnosis: Severe pre-eclampsia, unspecified trimester Discharge Diagnosis (1) 34 weeks gestation of : Code(s): Z3A.34 - 34 weeks gestation of Status: Acute (2) delivery: Code(s): O60.10X0 - labor with delivery, unspecified trimester, not applicable or unspecified Status: Acute (3) delivery: Code(s): O60.10X0 - labor with delivery, unspecified trimester, not applicable or unspecified Status: Acute OB - DS: Summary OB Procedures : NST and Ultrasound OB Procedures Intrapartum: Spontaneous Vag Delivery OB Procedures: : None Peripartum Data Infant Delivery Method: Natural Vaginal Laceration description: Vaginal - 2nd Degree complications: none Time Spent with Patient Time attestation: Total time spent providing and/or coordinating discharge services: DS: Data Data Completed and Pending Completed studies during hospitalization: Pending at discharge 07/11/19 17:36 Surgical [PTH] Routine Discharge Plan Discharge Attending physician on discharge: Roderick Hong Discharging Clinician: Roderick Hong Patient Disposition: Home, Self-Care Activity: pelvic rest Diet: regular Patient Instructions: Antibiotic Form Stand Alone Forms: General Discharge Information Follow-up/Referrals: Roderick Hong MD [Physician] - Discharge Medications: New labetalol 200 mg tablet 200 mg PO Q12H Qty: 60 RF: 0 labetalol 200 mg tablet 200 mg PO Q12H Qty: 60 RF: 3 No Action 400 mcg Tablet,Chewable 400 mcg PO DAILY RF: 0 Date of admission: 07/10/19 19:05 Primary Care Provider: Jung,Marie Admitting Provider: Roderick Hong Attending physician on admission: Roderick Hong
--- NOTE | 2019-07-14 07:56 | PM.OBPNVD ---
OB - PN: Subj Subjective Date/time seen: 07/14/19 07:56 Patient comments: no complaints, pain well controlled and tolerating diet OB - PN: Obj Data Labs CBC & Chem 7: 07/12/19 04:33 07/12/19 13:31 OB - PN A/P Assessment and Plan (1) 34 weeks gestation of : Code(s): Z3A.34 - 34 weeks gestation of Status: Acute (2) delivery: Code(s): O60.10X0 - labor with delivery, unspecified trimester, not applicable or unspecified Status: Acute (3) Preeclampsia, severe: Code(s): O14.10 - Severe pre-eclampsia, unspecified trimester Status: Acute Plan day: 3 Plan: routine care and discharge home Comments: BP's controlled - no sx of pree, stable - to d/c Time Spent With Patient Time: Total time spent is greater than 50% in coordination of care (as documented) at patient's floor/unit and/or counseling patient: Exam Const: General: comfortable and no acute distress Resp: Effort & Inspection: normal respiratory effort Auscultation: no rales, no rhonchi and no wheezes Cardio: Rate: regular rate Heart sounds: no click, no murmurs and no rubs GI: GI Palp: Yes Soft to palpation and No Tenderness to palpation present (GI) Auscultation: normal bowel sounds Extrem: General: normal to inspection, no pedal edema and no calf tenderness
--- NOTE | 2019-07-14 09:05 | PC.NURSE ---
Consult with pt., reviewed ICP order of Human Milk Fortifier (HMF) to be added to EBM. Reviewed one packet per 25mls of EBM. Supply given to parents. ICP wishes nipple 20-25 mls per feeding every 3-4 hours. Suggested for parents to discussed feeding plan with their home ICP on first visit Wednesday-.
[2019-07-14] MEDS: DOCUSATE SODIUM 100 MG CAPSULE PO (09:37)
[2019-07-14] MEDS: IBUPROFEN 600 MG TABLET PO (09:37)
[2019-07-14] MEDS: MULTIVIT/MIN/PREN/FOL AC/IRON TABLET 1 TAB PO (09:37)
[2019-07-14 09:38] VITALS: PULSE 80
[2019-07-14] MEDS: LABETALOL HCL 100 MG TABLET 300 MG PO (09:38)
[2019-07-14 11:45] VITALS: BP 146/98; PULSE 77
--- NOTE | 2019-07-14 13:45 | PC.NURSE ---
Mother is feeding as required and waking to feed if needed. is currently meeting outcomes for weight, output, jaundice and feeding frequencies. Mother states she feels confident to with pumping and bottle feeding at home. Mother has a double electric Medela breastpump for home use. Reviewed feeding plan of HMF to each 25mls of expressed breastmilk. Reviewed transition to breast milk, signs of adequate intake, and engorgement/relief. Instructed to call ICP if intake/output less than required. Reviewed regular medications mother is taking. Information provided per [facility]. Reviewed community resources on the [employer] website and in the Mom/Baby guide. Information on outpatient services provided. Reviewed mother should continue to attempt infant to breast each feeding for a few minutes. Advised not to discontinue supplementation until advised to do so by ICP. Mother has no further questions at this time.
--- NOTE | 2019-07-14 17:58 | PC.NURSE ---
[address] Hong to verify pt's discharge for today. Her returned call at 1437; verified discharged and received permission to enter discharge order. Nurse asked to transmit RX for pt's Labetolol, and verified dose of Labetolol 300mg Bid to be continued at home. [address] Hong because pt states her pharmacy had not received the Rx for Labetolol. He stated he would do this; he was asked to call to [facility]. He agree.
[2019-07-15 11:09] VITALS: BP 168/114; PULSE 68; RESP 18; TEMP 36.8; O2SAT 98
== END 2019-07-14 18:00 | disposition home or self-care (01) | DRG 807 ==
LOC: ANHOBPP 19:12 → ANHLDR 19:26 → ANHOB2 07-11 21:08
PROVIDERS: Admitting Provider Obstetrics & Gynecology; PCP Physician Assistant; Visit Provider Obstetrics & Gynecology
DX: O14.14 Severe pre-eclampsia complicating childbirth (principal); Z37.0 Single live birth; Z3A.34 34 weeks gestation of pregnancy; O60.14X0 Preterm labor third trimester with preterm delivery third trimester, not applicable or unspecified; O70.1 Second degree perineal laceration during delivery; O99.214 Obesity complicating childbirth; E66.01 Morbid (severe) obesity due to excess calories
CPT/HCPCS: 36415; 59025; 80053; 83735; 84550; 85014; 85018; 85025; 85049; 86592; 86850; 86900; 86901; 88307; A9270; J0290; J2590; J2795; J3475; J7120

== ENCOUNTER 2019-07-15 11:46 | Observation (INO) | payer BC, MEDICAID, SELFPAY ==
[2019-07-15] VITALS (189 sets, daily range): BP systolic 135–173; BP diastolic 83–111; PULSE 56–121; RESP 18–22; TEMP 36.7–37.1; O2SAT 91–100
--- NOTE | 2019-07-15 11:46 | PC.NURSE ---
1136- Went to 2nd floor OB where patient was in a no care bed in room 282 to follow up on severe BP that was obtained during pt's hospital follow up visit. BP 188/130 with pt sitting up. 1139- Repeat BP with pt on left side 172/108. 1144- To OB first floor per wheelchair. Fiance and baby will follow pt down.
--- NOTE | 2019-07-15 11:53 | PC.NURSE ---
Dr. Hong informed of BP that were obtained with pt in no care bed in room 282 of OB unit. (188/130 sitting and 172/108 on left side. Pt was brought and admitted to OB room 115 per wheelchair for severe hypertension in period. Pt was initially placed on left side to control BP while orders were obtained.
[2019-07-15] MEDS: LABETALOL HCL INJ 100 MG/20 ML VIAL 20 MG IV PUSH ×2 (12:22→17:36)
[2019-07-15 12:27] LABS: Basophils Absolute Auto 0.1 K/mm3 (0.0-0.1); Basophils Percent Auto 0.4 % (0.2-1.2); Eosinophils Absolute Auto 0.3 K/mm3 (0-0.3); Hematocrit 32.5 % (37.0-47.0); Hemoglobin 10.2 g/dL (12.0-15.0); Immature Granulocyte Absolute 0.31 K/mm3 (0.00-0.031); Immature Granulocyte Percent A 2.1 % (0-0.5); Lymphocytes Absolute Auto 2.43 K/mm3 (0.9-3.2); Lymphocytes Percent Auto 16.1 % (18.3-44.2); Mean Corpuscular HGB Conc 31.4 g/dl (32-36); Mean Corpuscular Hemoglobin 28.6 pg (26-34); Mean Platelet Volume 10.9 fl (7.4-10.4); Monocytes Percent Auto 6.3 % (2.6-8.5); Neutrophils Absolute Auto 11.1 K/mm3 (1.3-6.7); Neutrophils Percent Auto 73.1 % (45.5-73.1); Nucleated Red Blood Cells Perc 0.1 % (0.0-0.2); Platelet Count Result 204 k/mm3 (150-375); Red Blood Count 3.57 M/mm3 (4.2-5.4); Red Cell Distribution Width 15.4 % (11.5-14.5); White Blood Count 15.1 K/mm3 (4.5-10.0)
[2019-07-15] MEDS: LACTATED RINGERS 1,000 ML 75 ML IV CONT (12:35)
[2019-07-15] MEDS: MAGNESIUM SULF 4 GM/WATER100ML 4 GM/100 ML BAG IVPB (12:35)
[2019-07-15] MEDS: LABETALOL HCL INJ 100 MG/20 ML VIAL 40 MG IV PUSH (12:41)
[2019-07-15 13:10] LABS: Alanine Aminotransferase 56 U/L (4-35); Albumin Level 2.6 g/dL (3.5-5.1); Alkaline Phosphatase 123 U/L (38-126); Aspartate Amino Transferase 46 U/L (14-36); Bilirubin,Total 0.3 mg/dL (0.2-1.3); Blood Urea Nitrogen 11 mg/dL (7-17); Calcium 8.3 mg/dL (8.4-10.2); Carbon Dioxide 24 mmol/L (22-30); Chloride 109 mmol/L (98-107); Estimated Glomerular Filt Rate > 60; Glucose 77 mg/dL (65-105); Sodium 137 mmol/L (137-145); Uric Acid 8.4 mg/dL (2.5-7.5)
[2019-07-15] MEDS: MAGNESIUM SULF 20GM/WATER500ML 500 ML 50 MG IV CONT ×2 (13:14→23:48)
--- NOTE | 2019-07-15 13:46 | PC.NURSE ---
Dr. Hong stopped in room to see pt. Updated on BP's and amount of IV Labetalol that was given. ordered Procardia XL to start now.
--- NOTE | 2019-07-15 13:47 | PC.NURSE ---
Also, reviewed lab results with Dr. Hong.
--- NOTE | 2019-07-15 13:49 | PM.IMHP ---
H&P: HPI History of Present Illness Chief complaint: SEVERE PP HYPERTENSTION Narrative: Rosana Marrero is a 24 year old female who is day #5 Vaginal . Her was complicated by severe preeclampsia. She delivered at 34 weeks. She returned today for blood pressure check. Her blood pressures were in the severe range. She denied any headache, blurry vision, epigastric pain. She denies any worsening over swelling. She denies any chest pain or shortness of breath. She denies any nausea, vomiting, fever, chills. Review of Systems Constitutional: Constitutional: Reports no additional constitutional complaints, Denies fatigue, Denies headache(s), Denies lethargy and Denies weakness Eyes: Eyes: Reports no additional eye complaints, Denies blurry vision and Denies photophobia ENT: Reports as per HPI, Denies headache(s) and Denies neck pain Cardiovascular: Cardiovascular: Denies chest pain, Denies diaphoresis, Denies leg edema, Denies palpitations and Denies dyspnea Respiratory: Respiratory: Denies hemoptysis, Denies dyspnea and Denies wheezing Gastrointestinal: Gastrointestinal: Denies abdominal pain, Denies melena, Denies bloating, Denies hematochezia, Denies nausea and Denies vomiting Genitourinary: Genitourinary: Reports no additional female genitourinary complaints Musculoskeletal: Musculoskeletal: Denies joint swelling, Denies neck pain, Denies numbness and Denies stiffness Neurologic: Denies Abnormal speech present, Denies confusion, Denies headache(s), Denies numbness and Denies weakness Psychiatric: Psychiatric: Denies anxiety, Denies confusion, Denies depression, Denies homicidal ideation and Denies suicidal ideation Endocrine: Endocrine: Denies fatigue and Denies palpitations Allergic/Immunologic: Allergic/Immunologic: Denies wheezing [facility] Family History Family History (Updated 01/30/15 @ 10:13 by DOCTOR UNKNOWN) Mother Family history of thyroid disease Other Diabetes mellitus Family history of cardiovascular disease Family history of malignant neoplasm Hypertension Social History Social History Smoking status: Never smoker Alcohol intake: never Substance use: never Gender identity (if verbalized by the patient): Female Spiritual care concerns: No Meds Home Medications and Allergies Home Medications Medication Instructions Recorded Confirmed Type 400 mcg PO DAILY 06/16/19 07/10/19 History ibuprofen 600 mg PO Q6H PRN tablet 07/14/19 Rx labetalol 300 mg PO Q12H #60 tablet 07/14/19 Rx labetalol 300 mg PO Q12HR tablet 07/14/19 Rx lanolin [[id number]] 1 applic TOPICAL PRN PRN g 07/14/19 Rx Allergies Allergy/AdvReac Type Severity Reaction Status Date / Time No Known Allergies Allergy Unverified 08/11/11 12:54 Vital Signs Vital Signs - 24 hr 07/15/19 11:52 07/15/19 12:00 07/15/19 12:07 Pulse Rate 74 70 Blood Pressure 164/103 H 156/97 H Blood Pressure [Left Arm] Pulse Oximetry 98 07/15/19 12:12 07/15/19 12:17 07/15/19 12:18 Pulse Rate 70 Blood Pressure 170/111 H Blood Pressure [Left Arm] Pulse Oximetry 99 98 07/15/19 12:22 07/15/19 12:24 07/15/19 12:25 Pulse Rate 68 60 Blood Pressure 170/106 H Blood Pressure [Left Arm] 160/107 H Pulse Oximetry 98 07/15/19 12:26 07/15/19 12:27 07/15/19 12:30 Pulse Rate 70 68 Blood Pressure 160/107 H 168/106 H Blood Pressure [Left Arm] Pulse Oximetry 98 07/15/19 12:32 07/15/19 12:35 07/15/19 12:37 Pulse Rate 68 Blood Pressure 165/106 H Blood Pressure [Left Arm] Pulse Oximetry 98 98 07/15/19 12:40 07/15/19 12:42 07/15/19 12:45 Pulse Rate 69 72 Blood Pressure 161/104 H 157/102 H Blood Pressure [Left Arm] Pulse Oximetry 97 07/15/19 12:47 07/15/19 12:52 07/15/19 12:57 Pulse Rate Blood Pressure Blood Pressure [Left Arm] Pulse Oximetry 97 97 98 07/15/19 12:59 07/15/19 13:01 07/15/19 13:02 Pulse Rat
[2019-07-15] MEDS: NIFEdipine 30 MG TAB.ER.24 60 MG PO (14:01)
--- NOTE | 2019-07-15 14:35 | PC.NURSE ---
Pt sitting up pumping.
[2019-07-15] MEDS: MULTIVIT/MIN/PREN/FOL AC/IRON TABLET 1 TAB PO (15:24)
--- NOTE | 2019-07-15 17:15 | PC.NURSE ---
Pt sitting up pumping.
--- NOTE | 2019-07-15 17:17 | PC.NURSE ---
Dr. Hong updated on BP's. Additional orders received.
[2019-07-15] MEDS: WITCH HAZEL 40 PADS 1 PAD TOPICAL (18:25)
[2019-07-15] MEDS: LABETALOL HCL 100 MG TABLET 500 MG PO (23:00)
[2019-07-16] VITALS (187 sets, daily range): BP systolic 124–153; BP diastolic 70–100; PULSE 69–127; RESP 18–24; TEMP 36.6–37; O2SAT 89–100; BMI 43.5
[2019-07-16] MEDS: LACTATED RINGERS 1,000 ML 75 ML IV CONT (01:47)
[2019-07-16] MEDS: ACETAMINOPHEN 500 MG TABLET 1000 MG PO (06:28)
--- NOTE | 2019-07-16 09:30 | PC.NURSE ---
Pt continues to use breast pump. Breasts soften after pumping. Milk stored in refrigerator until [employer] needs it warmed up to feed infant.
--- NOTE | 2019-07-16 09:42 | PC.NURSE ---
0881- Noted O2 sats at 92% with pt sleeping on her back. Resp 24 and more shallow. Not snoring. Significant other states pt hasn't ever been tested for sleep apnea. Pt woke while we were talking. Had pt take a couple of deep breaths; O2 sat back up to 100%.
[2019-07-16] MEDS: MAGNESIUM SULF 20GM/WATER500ML 500 ML 50 MG IV CONT (09:54)
[2019-07-16] MEDS: MULTIVIT/MIN/PREN/FOL AC/IRON TABLET 1 TAB PO (09:57)
[2019-07-16] MEDS: LABETALOL HCL 100 MG TABLET 500 MG PO ×2 (09:59→21:03)
--- NOTE | 2019-07-16 12:33 | PC.NURSE ---
Dr. Hong on unit. Reviewed BP's. Discussed drop in O2 sats when pt sleeps. To discontinue Magnesium Sulfate therapy 24 hr after initiation.
--- NOTE | 2019-07-16 12:35 | PC.NURSE ---
Dr. Hong in to see pt.
--- NOTE | 2019-07-16 12:51 | PM.OBPNVD ---
OB - PN: Subj Subjective Date/time seen: 07/16/19 12:51 Patient comments: no complaints and tolerating diet Narrative: denies teresa/bv, no n/v/f/c OB - PN: Obj Data Labs CBC & Chem 7: 07/15/19 12:17 07/15/19 12:52 Labs: Laboratory Results - last 24 hr 07/15/19 12:52 Sodium 137 Potassium 5.0 Chloride 109 H Carbon Dioxide 24 BUN 11 Creatinine 0.90 Estim Creat Clear Calc Not Reportable Estimated GFR > 60 Glucose 77 Uric Acid 8.4 H Calcium 8.3 L Total Bilirubin 0.3 AST 46 H ALT 56 H Alkaline Phosphatase 123 Total Protein 6.0 L Albumin 2.6 L OB - PN A/P Assessment and Plan (1) Preeclampsia in period: Code(s): O14.95 - Unspecified pre-eclampsia, complicating the puerperium Status: Acute Assessment and Plan: BP's controlled with 60 mgprocardia XL and 500mg labetalol, to d/c mag and observe, to consider d/c after proven stability of bp's Time Spent With Patient Time: Total time spent is greater than 50% in coordination of care (as documented) at patient's floor/unit and/or counseling patient: Exam Const: General: comfortable, no acute distress and alert Resp: Effort & Inspection: normal respiratory effort Auscultation: no crackles, no rales and no rhonchi Cardio: Rate: regular rate Heart sounds: no click, no murmurs and no rubs GI: Inspection: non-distended GI Palp: No Tenderness to palpation present (GI) Auscultation: normal bowel sounds Other: Incision - CDI Extrem: General: normal to inspection, no calf tenderness and pedal edema
[2019-07-16] MEDS: NIFEdipine 30 MG TAB.ER.24 60 MG PO (14:10)
--- NOTE | 2019-07-16 17:08 | PC.NURSE ---
Dr. Hong updated on BP's. Pt denies headache, visual disturbance, and epigastric/RUQ pain. MD plans on keeping pt overnight. OK to shower. Call if pt has several BP's > 150/100.
[2019-07-17] VITALS (17 sets, daily range): BP systolic 116–149; BP diastolic 64–92; PULSE 70–86; RESP 14; TEMP 37.1
--- NOTE | 2019-07-17 08:02 | PM.OBPNVD ---
OB - PN: Subj Subjective Date/time seen: 07/17/19 08:02 Interval history: NO CORNEJO/BV/EP, Edema - stable Patient comments: no complaints OB - PN: Obj Data Labs CBC & Chem 7: 07/15/19 12:17 07/15/19 12:52 OB - PN A/P Assessment and Plan (1) Preeclampsia in period: Code(s): O14.95 - Unspecified pre-eclampsia, complicating the puerperium Status: Acute Assessment and Plan: PREE appears to be resolving. stable bp's, no Sx's. to d/c Plan Plan: discharge home Comments: F/U in 2 days Time Spent With Patient Time: Total time spent is greater than 50% in coordination of care (as documented) at patient's floor/unit and/or counseling patient: Time with patient: 15 - 25 minutes Exam Const: General: comfortable, no acute distress and alert Resp: Effort & Inspection: normal respiratory effort Auscultation: no crackles, no rales and no rhonchi Cardio: Rate: regular rate Heart sounds: no click, no murmurs and no rubs GI: Inspection: non-distended GI Palp: No Tenderness to palpation present (GI) Auscultation: normal bowel sounds Other: Incision - CDI Extrem: General: normal to inspection, no calf tenderness and pedal edema
--- NOTE | 2019-07-17 08:06 | PM.OBDSVD ---
DS: Diagnosis Admitting Diagnosis Admitting Diagnosis: Severe pre-eclampsia, unspecified trimester Discharge Diagnosis (1) Preeclampsia in period: Code(s): O14.95 - Unspecified pre-eclampsia, complicating the puerperium Status: Acute OB - DS: Summary OB Procedures : PIH Mgmt OB Procedures Intrapartum: Spontaneous Vag Delivery OB Procedures: : Other Peripartum Data complications: other (Post preeclampsia) Status at Discharge Functional status at discharge: independent ambulation Time Spent with Patient Time attestation: Total time spent providing and/or coordinating discharge services: Time spent: Greater than 30 minutes Discharge Plan Discharge Attending physician on discharge: Roderick Hong Discharging Clinician: Roderick Hong Patient Disposition: Home, Self-Care Activity: pelvic rest Diet: regular Patient Instructions: Antibiotic Form Stand Alone Forms: General Discharge Information Follow-up/Referrals: Roderick Hong MD [Physician] - Discharge Medications: New labetalol 200 mg tablet 200 mg PO Q12H Qty: 60 RF: 1 labetalol 100 mg tablet 100 mg PO Q12H Qty: 60 RF: 1 nifedipine [Procardia XL] 60 mg tablet extended release 24hr 60 mg PO DAILY Qty: 30 RF: 1 Continued PNV [id number] fumarate-FA [] 28 mg iron- 800 mcg Tablet 1 tablet PO DAILY RF: 0 Qdm-M-[id number] Cream 1 applic topical PRN PRN (Reason: Sore Nipples) RF: 0 Discontinued labetalol 300 mg tablet 300 mg PO Q12H Qty: 60 RF: 0 Date of admission: 07/15/19 11:46 Primary Care Provider: Jung,Marie Admitting Provider: Roderick Hong Attending physician on admission: Roderick Hong
--- NOTE | 2019-07-17 08:09 | PC.NURSE ---
0755--Dr Hong at bedside. Plan of care discussed; DC orders given.
[2019-07-17] MEDS: LABETALOL HCL 100 MG TABLET 500 MG PO (09:00)
[2019-07-17] MEDS: MULTIVIT/MIN/PREN/FOL AC/IRON TABLET 1 TAB PO (09:00)
== END 2019-07-17 10:30 | disposition home or self-care (01) ==
LOC: ANHOBOP 12:04 → ANHOBPP 12:04 → ANHOBOP 12:04 → ANHOBPP 12:04
PROVIDERS: Admitting Provider Obstetrics & Gynecology; PCP Physician Assistant; Visit Provider Obstetrics & Gynecology
DX: O14.15 Severe pre-eclampsia, complicating the puerperium (principal)
CPT/HCPCS: 36415; 80053; 84550; 85025; 96365; 96366; 96375; 96376; A9270; G0378; G0379; J3475; J7120

== ENCOUNTER 2019-07-19 12:23 | Outpatient (CLI) | payer BC, MEDICAID, SELFPAY ==
[2019-07-19 12:33] VITALS: BP 141/94; PULSE 83; RESP 18; TEMP 36.8
[2019-07-19 12:45] VITALS: BP 139/87; PULSE 79
[2019-07-19 13:00] VITALS: BP 140/87; PULSE 77
[2019-07-19 13:15] VITALS: BP 138/90; PULSE 73
[2019-07-19 13:30] VITALS: BP 125/73; PULSE 72
--- NOTE | 2019-07-19 13:34 | PC.NURSE ---
Dr. Hong informed of pt's BP's. OK to discharge to home. Pt will call for ride.
== END 2019-07-19 13:52 | disposition home or self-care (01) ==
LOC: ANHOBOP 12:30 → ANHOBPP 12:31
PROVIDERS: PCP Physician Assistant; Visit Provider Obstetrics & Gynecology
DX: O16.5 Unspecified maternal hypertension, complicating the puerperium (principal)
CPT/HCPCS: 99199

== ENCOUNTER 2019-08-01 12:33 | Outpatient (CLI) | payer BC, MEDICAID, SELFPAY ==
--- NOTE | ~2019-08-01 | US_ITS ---
EXAMINATION: US venous doppler UE RT DATE: 08/01/2019 13:24 INDICATION: Right upper limb pain. TECHNIQUE: Grayscale ultrasound images without and with compression and Doppler ultrasound images of the right upper extremity veins were obtained. COMPARISON: None. FINDINGS: The visualized portions of the right internal jugular vein, subclavian vein, axillary vein, brachial veins, basilic vein, cephalic vein, radial vein, and ulnar vein are patent. IMPRESSION: 1. No deep venous thrombosis. Reviewed, dictated and finalized at location A.
== END 2019-08-01 12:34 | disposition home or self-care (01) ==
PROVIDERS: PCP Physician Assistant; Visit Provider Obstetrics & Gynecology
DX: M79.601 Pain in right arm (principal)
CPT/HCPCS: 93971

== ENCOUNTER 2019-12-29 11:07 | Emergency (ER) | payer BC, MEDICAID, SELFPAY ==
--- NOTE | ~2019-12-29 | XR_ITS ---
EXAMINATION: XR chest 1V portable INDICATION: Shortness of breath TECHNIQUE: Portable AP chest at 1411 hours COMPARISON: None available FINDINGS: The lungs are free of acute opacities. There is no pleural effusion or pneumothorax. The ca rdiomediastinal silhouette is normal. The visualized osseous structures are unremarkable. IMPRESSION: 1. No acute cardiopulmonary abnormality. Reviewed, dictated and finalized at location A.
[2019-12-29 11:44] VITALS: BP 145/102; PULSE 75; RESP 16; TEMP 36.2; O2SAT 99
--- NOTE | 2019-12-29 13:42 | ECG_ITS ---
Measurements Intervals [place] Rate: 59 P: 28 MI: 122 QRS: 46 QRSD: 85 T: 20 QT: 406 QTc: 405 Interpretive Statements SINUS BRADYCARDIA WITH SINUS ARRHYTHMIA BORDERLINE ST-T WAVE ABNORMALITY- ANTERIOR LEADS BASELINE ARTIFACT- I, II, AVR, AVL, AVF BORDERLINE ECG Electronically Signed On 12-29-2019 15:21:06 CDT by Marques Lawson D.O.
[2019-12-29 14:18] LABS: Basophils Percent Auto 0.3 % (0.2-1.2); Eosinophils Absolute Auto 0.1 K/mm3 (0-0.3); Eosinophils Percent Auto 0.5 % (0-4.4); Hematocrit 47.3 % (37.0-47.0); Hemoglobin 15.6 g/dL (12.0-15.0); Immature Granulocyte Absolute 0.04 K/mm3 (0.00-0.031); Immature Granulocyte Percent A 0.4 % (0-0.5); Lymphocytes Absolute Auto 2.51 K/mm3 (0.9-3.2); Lymphocytes Percent Auto 26.5 % (18.3-44.2); Mean Corpuscular Hemoglobin 27.6 pg (26-34); Mean Corpuscular Volume 83.7 fl (80-100); Mean Platelet Volume 10.1 fl (7.4-10.4); Monocytes Absolute Auto 0.6 K/mm3 (0.1-0.6); Monocytes Percent Auto 6.8 % (2.6-8.5); Neutrophils Absolute Auto 6.2 K/mm3 (1.3-6.7); Neutrophils Percent Auto 65.5 % (45.5-73.1); Platelet Count Result 344 k/mm3 (150-375); Red Blood Count 5.65 M/mm3 (4.2-5.4); White Blood Count 9.5 K/mm3 (4.5-10.0)
[2019-12-29 14:28] LABS: Anion Gap 9 mmol/L (8-16); Blood Urea Nitrogen 10 mg/dL (7-17); Calcium 9.6 mg/dL (8.4-10.2); Carbon Dioxide 24 mmol/L (22-30); Chloride 105 mmol/L (98-107); Estimated CRCL calculation 102 ml/min; Estimated Glomerular Filt Rate > 60; Glucose 89 mg/dL (65-105); Potassium 4.1 mmol/L (3.4-5.0); Sodium 138 mmol/L (137-145)
[2019-12-29 14:38] LABS: Prothrombin Time 12.5 Seconds (11.1-14.7)
[2019-12-29 14:39] LABS: Partial Thromboplastin Time 27.5 SECONDS (22.3-36.8)
[2019-12-29 14:40] LABS: Troponin I < 0.012 ng/mL (0.000-0.034)
[2019-12-29 14:41] LABS: D Dimer 0.48 ug/mL (<0.48)
--- NOTE | 2019-12-29 15:10 | ED.SOB ---
HPI - SOB/Dyspnea General Chief Complaint: Extremity Problem,Nontraumatic Stated Complaint: SOB, possible dvt per urgent care Time Seen by Provider: 12/29/19 13:09 Source: patient Mode of arrival: ambulatory Limitations: no limitations History of Present Illness HPI Narrative: This is a 24 year old female that presents to the ER for shortness of breath x 2 days. Reports improvement in her symptoms today. Was [facility] at [facility] and sent here for further evaluation. Reports she was told when she had her baby her oxygen drops when she sleeps and she should get checked for sleep apnea. Denies fever, cough, chest pain, or lower extremity edema. Related Data Home Medications Medication Instructions Recorded Confirmed labetalol 100 mg PO DAILY 12/29/19 Allergies Allergy/AdvReac Type Severity Reaction Status Date / Time No Known Allergies Allergy Verified 12/29/19 13:13 Review of Systems Review of Systems: Narrative: CONSTITUTIONAL: Denies fever CARDIOVASCULAR: Denies chest pain, or edema. RESPIRATORY: Reports dyspnea. Denies cough All systems reviewed & are unremarkable except as noted in HPI and below PMFSH Past Medical History Medical History (Updated 12/29/19 @ 16:10 by Lois Gordon PA-C) History of hypertension Family History Family History (Updated 01/30/15 @ 10:13 by DOCTOR UNKNOWN) Mother Family history of thyroid disease Other Diabetes mellitus Family history of cardiovascular disease Family history of malignant neoplasm Hypertension Social History Social History Smoking status: Never smoker Alcohol intake: never Substance use: never Gender identity (if verbalized by the patient): Female Spiritual care concerns: No Exam Narrative: Exam Narrative: GENERAL: Well-appearing, obese, and in no acute distress. HEAD: Normocephalic, atraumatic. EYES: EOMI. ENT: Nares clear, no rhinorrhea or epistaxis. Mucous membranes moist. Oropharynx without tonsillar hypertrophy exudate or other lesions. Bilateral TMs pearly ordoñez non-bulging NECK: Supple. No adenopathy or masses. CHEST: Clear to auscultation. No respiratory distress. No wheezes rales or rhonchi HEART: Regular rate and rhythm. No murmur heard. Normal peripheral pulses. EXTREMITIES: Normal range of motion. No edema or erythema. SKIN: Warm, dry, no rash. NEURO: No focal deficits. Alert and oriented x3. PSYCH: Normal mood and affect Course Vital Signs Vital signs: Vital Signs Temperature 97.2 F L 12/29/19 11:44 Pulse Rate 75 12/29/19 11:44 Respiratory Rate 16 12/29/19 11:44 Blood Pressure 145/102 H 12/29/19 11:44 Pulse Oximetry 99 12/29/19 11:44 Temperature 97.2 F L 12/29/19 11:44 Pulse Rate 75 12/29/19 11:44 Respiratory Rate 16 12/29/19 11:44 Blood Pressure 145/102 H 12/29/19 11:44 Pulse Oximetry 99 12/29/19 11:44 MDM - SOB/Dyspnea MDM Narrative Medical decision making narrative: Patient presents to the emergency department for shortness of breath x2 days. Oxygen saturation is remained normal on room air. CBC with mild hemoconcentration, otherwise no acute findings. Metabolic panel without concerning changes. Troponin and d-dimer are negative. Chest x-ray is without acute findings. EKG without concerning changes. Patient was updated on case findings. Able to ambulate in the ED and maintain oxygen saturation. She is stable and felt appropriate for further outpatient evaluation. She is to follow-up with primary care doctor. She was given warnings to return to the ER Lab Data Attestation: I reviewed the patient's lab results. Result diagrams: 12/29/19 14:08 12/29/19 14:08 Labs: Lab Results 12/29/19 12/29/19 12/29/19 Range/Units 14:08 14:08 14:08 WBC 9.5 (4.5-10.0) K/mm3 RBC 5.65 H (4.2-5.4) M/mm3 Hgb 15.6 H D (12.0-15.0) g/dL Hct 47.3 H (37.0-47.0) % MCV 83.7 (80-100) fl MCH 27.6 (26-34) pg MCHC 33.0 (3
[2019-12-29 16:27] VITALS: BP 145/99; PULSE 92; RESP 16; O2SAT 98
== END 2019-12-29 16:29 | disposition home or self-care (01) ==
PROVIDERS: Physician Assistant; Emergency Provider Emergency Medicine; PCP Physician Assistant
DX: R06.02 Shortness of breath (principal); Z20.828 Contact with and (suspected) exposure to other viral communicable diseases; I10 Essential (primary) hypertension; R00.1 Bradycardia, unspecified; R94.31 Abnormal electrocardiogram [ECG] [EKG]
CPT/HCPCS: 36415; 71045; 80048; 84484; 85025; 85380; 85610; 85730; 93005; 99284

== ENCOUNTER 2020-02-15 09:51 | Outpatient (CLI) | payer BC, MEDICAID, SELFPAY ==
--- NOTE | ~2020-02-15 | NM_ITS ---
EXAMINATION: NM hepatobiliary wo pharm DATE: 02/15/2020 12:44 INDICATION: Disorder of gallbladder. COMPARISON: Hepatobiliary scintigraphy 01/16/2015, ultrasound 01/16/2015 TECHNIQUE: 4.8 mCi Tc-99m mebrofenin (Choletec) was administered intravenously. Scintigraphic images of the abdomen were obtained for one hour. Then, the patient drank 8 oz Ensure, and imaging was cont inued for 60 minutes. FINDINGS: There is normal clearance of radiotracer from the blood pool. There is homogeneous tracer u ptake by the liver. Activity progresses to the bowel and gallbladder. Gallbladder ejection fraction (GBEF) was 20%. Note that with this technique, normal GBEF >= 33%. IMPRESSION: 1. Low gallbladder ejection fraction, consistent with gallbladder dysfunction and/or chronic cholecy stitis. Reviewed, dictated and finalized at location A. IMPRESSION: 1. Low gallbladder ejection fraction, consistent with gallbladder dysfunction and/or chronic cholecystitis.
== END 2020-02-15 09:52 | disposition home or self-care (01) ==
LOC: ANHIMG 10:02
PROVIDERS: PCP Physician Assistant; Visit Provider Physician Assistant
DX: K82.9 Disease of gallbladder, unspecified (principal)
CPT/HCPCS: 78226; A9537

== ENCOUNTER 2021-04-02 00:59 | Emergency (ER) | payer BC, MEDICAID, SELFPAY ==
--- NOTE | ~2021-04-02 | XR_ITS ---
EXAMINATION: XR chest 2V DATE: 04/02/2021 01:43 INDICATION: Shortness of breath. Palpitations. TECHNIQUE: Frontal and lateral views of the chest were obtained. COMPARISON: Chest single view 12/29/2019 FINDINGS: The chest demonstrates clear lungs without pneumonia, pleural effusion, or pneumothorax. Th e heart size is normal. IMPRESSION: 1. No acute cardiopulmonary disease. Reviewed, dictated and finalized at location A. TRAINER
--- NOTE | 2021-04-02 01:02 | ED.ANXIETY ---
HPI - Anxiety General Chief Complaint: Anxiety Stated Complaint: anxiety, can't sleep, chest pain Time Seen by Provider: 04/02/21 01:02 Source: patient Mode of arrival: ambulatory Limitations: no limitations History of Present Illness HPI narrative: Patient is a 25-year-old female with history of anxiety presenting for evaluation of chest pain, anxiety, unable to sleep. Patient states that her anxiety worsened a week ago. Patient has been taking venlafaxine and recently changed her medications and is now taking vraylar (cariprazine) for this past week. Pt states since her medications changed she has been having more intrusive thoughts about her health. She denies chest pain. She reports palpitations and feels as if her heart is racing. Pt denies SI, HI, auditory or visual hallucinations. She wanted to be evaluated secondary to the palpitations. Pt reports she has been working on decreasing her caffeine intake as that does increase her anxiety. She has been drinking plenty of fluids. Denies consumption of energy drinks. Related Data Home Medications Medication Instructions Recorded Confirmed cariprazine 1.5 mg capsule 1.5 mg PO DAILY 03/25/21 03/25/21 lisdexamfetamine 30 mg capsule 30 mg PO DAILY 03/25/21 03/25/21 Allergies Allergy/AdvReac Type Severity Reaction Status Date / Time No Known Allergies Allergy Verified 03/25/21 09:05 Review of Systems Review of Systems: CONSTITUTIONAL: Denies fever, chills, or sweats. EYES: Denies visual changes, redness, or discharge. ENT: Denies rhinorrhea, congestion, sore throat, or otalgia. CARDIOVASCULAR: Denies chest pain,reports palpitations RESPIRATORY: Denies cough or dyspnea. GASTROINTESTINAL: Denies abdominal pain, nausea, vomiting, or diarrhea. GENITOURINARY: Denies dysuria or hematuria. SKIN: Denies rash or itching. MUSCULOSKELETAL: Denies back pain, joint pain, or myalgia. NEUROLOGIC: Denies headache, numbness, or weakness. PSYCHIATRIC: Reports anxiety, reports insomnia; pt does report 8 hours of sleep nightly PMF Past Medical History Medical History Anxiety History of hypertension Surgical History Surgical History History of cholecystectomy Family History Family History Mother Family history of thyroid disease Unknown Diabetes mellitus Family history of thyroid disease Other Family history of cardiovascular disease Family history of malignant neoplasm Hypertension Social History Social History Smoking status: Never smoker Alcohol intake: current Substance use: current Gender identity (if verbalized by the patient): Female Spiritual care concerns: No Exam Narrative: GENERAL: Awake, alert, conversant HEAD: Normocephalic, atraumatic. EYES: PERRLA and EOMI. ENT: Nares clear, no rhinorrhea or epistaxis. Mucous membranes moist. No chest wall tenderness. NECK: Supple. CHEST: No respiratory distress, breathing even and non labored HEART: Regular rate, sinus rhythm ABDOMEN:Non distended, non tender EXTREMITIES: Normal range of motion. No edema. SKIN: Warm, dry, no rash. NEURO:No focal deficits. Alert and oriented x3 Course Vital Signs Vital signs: Vital Signs Temperature 36.8 C 04/02/21 01:04 Pulse Rate 72 04/02/21 01:04 Respiratory Rate 22 H 04/02/21 01:04 Blood Pressure 144/74 H 04/02/21 01:04 Pulse Oximetry 100 04/02/21 01:04 Temperature 36.8 C 04/02/21 01:04 Pulse Rate 83 04/02/21 02:57 Respiratory Rate 18 04/02/21 02:57 Blood Pressure 122/63 04/02/21 02:57 Pulse Oximetry 100 04/02/21 02:57 MDM - Anxiety MDM Narrative Medical decision making narrative: Patient presenting for evaluation of palpitations. At the time of assessment, ABCs are intact and vital signs are stable.
[2021-04-02 01:04] VITALS: BP 144/74; PULSE 72; RESP 22; TEMP 36.8; O2SAT 100
--- NOTE | 2021-04-02 01:29 | ECG_ITS ---
Measurements Intervals [place] Rate: 90 P: 31 NE: 127 QRS: 42 QRSD: 83 T: 24 QT: 378 QTc: 464 Interpretive Statements SINUS RHYTHM NORMAL ECG Electronically Signed On 04-02-2021 6:41:49 [employer] by Marques Lawson D.O.
[2021-04-02 02:04] LABS: Basophils Percent Auto 0.4 % (0.2-1.2); Eosinophils Absolute Auto 0.2 K/mm3 (0-0.3); Eosinophils Percent Auto 1.6 % (0-4.4); Hematocrit 42.3 % (37.0-47.0); Hemoglobin 13.6 g/dL (12.0-15.0); Immature Granulocyte Absolute 0.05 K/mm3 (0.00-0.031); Immature Granulocyte Percent A 0.5 % (0-0.5); Lymphocytes Absolute Auto 4.13 K/mm3 (0.9-3.2); Lymphocytes Percent Auto 37.3 % (18.3-44.2); Mean Corpuscular HGB Conc 32.2 g/dl (32-36); Mean Corpuscular Hemoglobin 28.8 pg (26-34); Mean Corpuscular Volume 89.4 fl (80-100); Mean Platelet Volume 9.8 fl (7.4-10.4); Monocytes Absolute Auto 0.9 K/mm3 (0.1-0.6); Monocytes Percent Auto 8.2 % (2.6-8.5); Neutrophils Absolute Auto 5.8 K/mm3 (1.3-6.7); Platelet Count Result 303 k/mm3 (150-375); Red Blood Count 4.73 M/mm3 (4.2-5.4); Red Cell Distribution Width 12.6 % (11.5-14.5); White Blood Count 11.1 K/mm3 (4.5-10.0)
[2021-04-02 02:15] LABS: Anion Gap 5 mmol/L (8-16); Blood Urea Nitrogen 17 mg/dL (7-17); Calcium 8.8 mg/dL (8.4-10.2); Carbon Dioxide 26 mmol/L (22-30); Chloride 105 mmol/L (98-107); Estimated CRCL calculation 103 ml/min; Estimated Glomerular Filt Rate > 60; Glucose 91 mg/dL (65-110); Potassium 4.4 mmol/L (3.4-5.0); Sodium 136 mmol/L (137-145)
[2021-04-02 02:25] LABS: Hypochromasia 2+ (NORMAL); Platelet Estimate Adequate (Adequate)
[2021-04-02 02:27] LABS: Troponin I < 0.012 ng/mL (0.000-0.034)
[2021-04-02 02:57] VITALS: BP 122/63; PULSE 83; RESP 18; O2SAT 100
== END 2021-04-02 02:58 | disposition home or self-care (01) ==
PROVIDERS: Emergency Provider Emergency Medicine; PCP Physician Assistant
DX: F41.9 Anxiety disorder, unspecified (principal); I10 Essential (primary) hypertension; R00.2 Palpitations
CPT/HCPCS: 36415; 71046; 80048; 84443; 84484; 85025; 93005; 99284

== ENCOUNTER 2021-05-20 07:58 | Outpatient (CLI) | payer BC, MEDICAID, SELFPAY ==
--- NOTE | 2021-05-22 22:52 | WPDHOMESLEEP ---
Sleep Study - Home Unattended Date of Study: 05/20/21 <Amelie Luu, DO - Last Filed: 05/23/21 11:34> Ordering Provider: Marie CrumpYESSY <Amelie Luu, DO - Last Filed: 05/23/21 11:34> Interpreting Provider: Amelie Luu DO <Amelie Luu, DO - Last Filed: 05/23/21 11:34> Home Sleep Study Type: Apnea Link Air <Amelie Luu DO - Last Filed: 05/23/21 11:34> Height: 1.63 m <Amelie Luu DO - Last Filed: 05/23/21 11:34> Weight: 106.594 kg <Amelie Luu DO - Last Filed: 05/23/21 11:34> Body Mass Index: 40.3 <Amelie Luu DO - Last Filed: 05/23/21 11:34> Neck Circumference (inches): 16 <Amelie Luu DO - Last Filed: 05/23/21 11:34> Carmi: 11 <Amelie Luu DO - Last Filed: 05/23/21 11:34> Reason for Sleep Study Unrefreshing sleep and daytime hypersomnia <Amelie Luu, DO - Last Filed: 05/23/21 11:34> Sleep History The patient is a 26-year-old female with anxiety, depressions, and ADHD that had a home sleep test ordered by her PCP due to unrefreshing sleep and daytime hypersomnia. The patient's mother has sleep apnea. The patient rarely awakens from sleep short of breath. She occasionally awakens at night with heartburn, belching or cough. She rarely snores and is rarely lowered enough that others complain. She constantly has trouble sleeping when she has a cold. She occasionally wakes up gasping for air throughout the night. She occasionally has breathing problems at night observed by others. She frequently sweats excessively at night. She rarely notices heart palpitations or irregular heartbeats during the night. She constantly falls asleep during the day but never while driving. She constantly has trouble at work due to sleepiness. She denies sleep paralysis, cataplexy and hypnagogic / hypnopompic hallucinations. She constantly has nightmares. She constantly has fought it is racing through her mind. She constantly feels sad, depressed and anxious. She frequently has muscular tension. She occasionally notices parts of her body jerks. She rarely kinks during the night. She frequently has crawling and aching feelings in her legs as well as leg pain during the night. She frequently grinds her teeth during sleep and frequently awakens with morning jaw pain. She is rarely bothered by pain during the day and rarely awakened by pain during the night. She constantly wakes up feeling stiff in the morning with sore and achy muscles. She constantly wakes up with pain in the neck, spine and other joints. She goes to bed at midnight on weekdays and 1:00 a.m. on the weekends. It takes her 30-60 minutes to fall asleep. She wakes up once throughout the night to urinate. She can fall back asleep within 5 minutes. She wakes up at 9:00 a.m. on weekdays and noon on the weekends. She typically gets 10 hours of sleep per night. She currently lives with her fiance and child. She does not consume any caffeinated beverages within 2 hours of bedtime. She does not engage in physical exercise before bedtime. She will watch television before falling asleep. She does not take naps in the afternoon or the evening. She denies caffeine use throughout the day. She denies tobacco and alcohol use. She does use marijuana daily. <Amelie Luu DO - Last Filed: 05/23/21 11:34> [facility] Past Medical History Medical History: Medical History (Updated 05/22/21 @ 23:04 by Amelie Luu DO) ADHD Anxiety Depression History of hypertension <Amelie Luu DO - Last Filed: 05/23/21 11:34> Surgical History Surgical History: Surgical History History of cholecystectomy <Ameile Luu DO - Last Filed: 05/23/21 11:34> Family History Family History: Family History (Reviewed 05/22/21 @ 23:00 by Amelie Mendez
[2021-05-23 11:34] VITALS: BMI 40.3
== END 2021-05-21 10:00 | disposition home or self-care (01) ==
LOC: ANHCSM 07:59
PROVIDERS: PCP Physician Assistant; Visit Provider Physician Assistant
DX: G47.30 Sleep apnea, unspecified (principal); G47.9 Sleep disorder, unspecified
CPT/HCPCS: 95806

== ENCOUNTER 2022-07-20 08:38 | Outpatient (CLI) | payer BC, MEDICAID, SELFPAY ==
--- NOTE | 2022-07-20 | ECHO_ITS ---
Patient Info Name: Rosana Marrero Age: 27 years : 1995 Gender: Female Ht: 64 in Wt: 240 lbs BSA: 2.27 m2 HR: 73 bpm BP: 129 / 79 mmHg Heart Rhythm: Sinus Rhythm Technical Quality: Good Exam Date: 07/20/2022 9:05 AM Exam Location: [facility] [facility] Patient Status: Outpatient Admit Date: 07/20/2022 Staff Ordering Physician: JungKely PA-C Email Marketing Manager: Georgina Arora RDCS Attending Provider: Kely Soto PA-C Exam Type: CA echo doppler color flow Study Info Indications R00.9 - Unspecified abnormalities of heart beat Complete two-dimensional, color flow and Doppler transthoracic echocardiogram is performed. Summary 1. Complete two-dimensional, color flow and Doppler transthoracic echocardiogram is performed. 2. Normal 2D/Doppler echocardiogram. Left Ventricle Left ventricular chamber dimension is normal. Left ventricular systolic function is normal, estimated at 55-60%. The left ventricular diastolic function is normal. Right Ventricle Right ventricular chamber dimension is normal. Left Atria Left atrial chamber dimension is normal. Right Atria Right atrial chamber dimension is normal. Aortic Valve The aortic valve is normal. Pulmonic Valve The pulmonic valve is normal. Mitral Valve The mitral valve has normal leaflets. Tricuspid Valve The tricuspid valve leaflets are normal. Pericardium/Pleural The pericardium appears normal. Aorta The aortic root size at the sinus of Valsalva is normal. Left Ventricular Outflow Tract Name Value Normal LVOT 2D LVOT Diameter 1.9 cm LVOT Doppler LVOT Peak Gradient 4 mmHg LVOT Mean Gradient 2 mmHg LVOT VTI 19 cm LVOT VTI/AV VTI Ratio 0.8 LVOT Stroke Volume 55 ml LVOT CO 4.5 l/min LVOT CI 2.0 l/min/m2 Pulmonic Valve Name Value Normal RVOT Doppler RVOT Peak Gradient 2 mmHg PV Doppler PV Peak Gradient 5 mmHg Mitral Valve Name Value Normal MV Doppler MV Decel [place] 452 cm/s2 MV PHT 49 ms MV Area (PHT) 4.5 cm2 4.0-5.0 MV Diastolic Function MV E Peak Velocity 76 cm/s MV A Peak Velocity
--- NOTE | 2022-07-24 14:49 | WPDHOLTEREM ---
Holter/Event Monitor Holter/Event Monitor Date of procedure: 07/24/22 Holter/Event Procedure: 48 Hr Holter Monitor Diagnosis: Palpitation Indications: Palpitations Image/Tracing Quality: Adequate/some baseline artifact noted Finding: The basic cardiac rhythm appears to be sinus with normal [place] QRS and QT intervals. The heart rate varies from a minimum of 45 to a maximum of 167 with an average rate of 85. RR interval recorded was 1.4 seconds. Supraventricular ectopic activity was rare consisting of a total of 5 PACs there were seen during the entire 48 hours. Runs of SVT in the were no examples of atrial fibrillation. Ventricular ectopic activity was also rare consisting of a total of 16 PVCs that were seen during this 48 hours. All of these were single beats there were no ventricular couplets or runs. The patient submitted a diary in which 7 episodes of lightheadedness were recorded all correlating with sinus rhythm or sinus tachycardia. Conclusion: Unremarkable 48 hour Holter monitor demonstrating sinus rhythm with normal heart rate variability and rare atrial and ventricular ectopic activity Epifanio Browning MD [facility]
== END 2022-07-20 08:39 | disposition home or self-care (01) ==
LOC: ANHCARD 08:38
PROVIDERS: PCP Physician Assistant; Visit Provider Physician Assistant
DX: R00.9 Unspecified abnormalities of heart beat (principal); R00.2 Palpitations
CPT/HCPCS: 93225; 93226; 93306

== ENCOUNTER 2022-08-29 05:31 | Emergency (ER) | payer BC, MEDICAID, SELFPAY ==
[2022-08-29] VITALS (25 sets, daily range): BP systolic 125–148; BP diastolic 79–101; PULSE 105–122; RESP 14–36; O2SAT 88–98
--- NOTE | ~2022-08-29 | CT_ITS ---
EXAMINATION: CTA chest PE protocol DATE: 08/29/2022 07:09 INDICATION: Dyspnea. TECHNIQUE: Computed tomography angiography (CTA) of the chest was performed with 100 mL Omnipaque-350 intravenous contrast timed to evaluate the pulmonary arteries. Coronal maximum intensity projection 3D-reconstructions were created by the technologist. Automated exposure control and iterative reconst ruction technique were employed. The dose-length product was 765.82 mGy-cm. COMPARISON: None. FINDINGS: There are patchy airspace and groundglass opacities in right lower lobe, right middle lobe, right upper lobe, and left upper lobe with a perihilar predominance. No pleural effusion. The heart size is normal. No pericardial effusion. There is no pulmonary embolus. The bones are unremarkable. IMPRESSION: 1. No pulmonary embolus. 2. Bilateral perihilar patchy airspace and groundglass opacities, right worse than left, consistent w ith pneumonia, especially atypical pneumonia. Reviewed, dictated and finalized at location A. IMPRESSION: 1. No pulmonary embolus. 2. Bilateral perihilar patchy airspace and groundglass opacities, right worse t paz left, consistent with pneumonia, especially atypical pneumonia.
--- NOTE | ~2022-08-29 | XR_ITS ---
EXAMINATION: XR chest 1V portable DATE: 08/29/2022 06:16 INDICATION: Dyspnea. TECHNIQUE: A single frontal view of the chest was obtained. COMPARISON: Chest 2 views 04/02/2021 FINDINGS: The chest demonstrates clear lungs without pneumonia, pleural effusion, or pneumothorax. Th e heart size is normal. IMPRESSION: 1. No acute cardiopulmonary disease. Reviewed, dictated and finalized at location A.
--- NOTE | 2022-08-29 05:45 | PC.NURSE ---
[facility] notified this RN that pt's oxygen saturation on room air was 88%. Instructed Kelley to place pt on 2L nasal cannula.
--- NOTE | 2022-08-29 05:53 | ECG_ITS ---
Measurements Intervals [place] Rate: 99 P: 62 RI: 109 QRS: 77 QRSD: 74 T: 61 QT: 337 QTc: 433 Interpretive Statements SINUS RHYTHM WITH SHORT RI INTERVAL BASELINE ARTIFACT- II, III, AVF BORDERLINE ECG COMPARED TO ECG 04/02/2021 01:59:05 NO SIGNIFICANT CHANGES Electronically Signed On 08-29-2022 8:52:29 CDT by Marques Lawson D.O.
[2022-08-29] MEDS: methylPREDNISolone SOD SUCC 125 MG VIAL IV PUSH (06:06)
[2022-08-29 06:17] LABS: Basophils Absolute Auto 0.1 K/mm3 (0.0-0.1); Basophils Percent Auto 0.5 % (0.2-1.2); Eosinophils Absolute Auto 0.7 K/mm3 (0-0.3); Eosinophils Percent Auto 5.7 % (0-4.4); Hematocrit 49.4 % (37.0-47.0); Hemoglobin 16.3 g/dL (12.0-15.0); Immature Granulocyte Absolute 0.05 K/mm3 (0.00-0.031); Immature Granulocyte Percent A 0.4 % (0-0.5); Lymphocytes Absolute Auto 1.52 K/mm3 (0.9-3.2); Lymphocytes Percent Auto 11.9 % (18.3-44.2); Mean Corpuscular Volume 87.7 fl (80-100); Monocytes Absolute Auto 1.3 K/mm3 (0.1-0.6); Neutrophils Absolute Auto 9.1 K/mm3 (1.3-6.7); Neutrophils Percent Auto 71.5 % (45.5-73.1); Platelet Count Result 335 k/mm3 (150-375); Red Blood Count 5.63 M/mm3 (4.2-5.4); White Blood Count 12.7 K/mm3 (4.5-10.0)
[2022-08-29 06:19] LABS: Lactic Acid Reflex 0.9 mmol/L (0.7-2.0)
[2022-08-29 06:20] LABS: Alanine Aminotransferase 38 U/L (6-35); Albumin Level 3.9 g/dL (3.5-5.1); Alkaline Phosphatase 127 U/L (38-126); Anion Gap 7 mmol/L (8-16); Aspartate Amino Transferase 28 U/L (14-36); Bilirubin,Total 0.5 mg/dL (0.2-1.3); Blood Urea Nitrogen 10 mg/dL (7-17); Calcium 8.9 mg/dL (8.4-10.2); Carbon Dioxide 26 mmol/L (22-30); Chloride 107 mmol/L (98-107); Estimated CRCL calculation 125 ml/min; Estimated Glomerular Filt Rate > 60; Glucose 103 mg/dL (65-110); Magnesium 1.9 mg/dL (1.6-2.3); Potassium 4.1 mmol/L (3.4-5.0); Sodium 140 mmol/L (137-145)
[2022-08-29 06:21] LABS: INR 0.9; Prothrombin Time 12.4 Seconds (11.1-14.7)
[2022-08-29 06:22] LABS: Partial Thromboplastin Time 26.2 SECONDS (22.3-36.8)
[2022-08-29 06:28] LABS: Alveolar/Arterial O2 Gradient 230.9 mmHg; Base Excess ABG -0.3 mEq/l (+/-2.0); Fractional Inspired Oxygen 50 %; HCO3 ABG 23.5 mEq/l (22.0-26.0); Oxygen Content ABG 21.7 %vol (16.0-22.0); Oxygen Saturation ABG 96.7 % (95.0-100.0); Oxyhemoglobin 94.7 % THb (90.0-100.0); PCO2 ABG 36.1 mmHg (35.0-45.0); Total Hemoglobin 16.3 g/dL (12.0-18.0); pH ABG 7.431 (7.350-7.450)
[2022-08-29 06:30] LABS: Device OTHER DEVICE; Modified Allen's Test Pass; Site Drawn RIGHT RADIAL
[2022-08-29 06:32] LABS: NT Pro B Type Natriuretic Pept 42 pg/mL (19.9-100); Troponin I < 0.012 ng/mL (0.000-0.034)
--- NOTE | 2022-08-29 06:38 | ED.GENADULT ---
HPI - General Adult General Chief complaint: Shortness of Breath/Dyspnea <Jarek Puentes MD - Last Filed: 08/29/22 06:42> Stated complaint: Cant take a deep breath <Jarek Puentes MD - Last Filed: 08/29/22 06:42> Time Seen by Provider: 08/29/22 05:48 <Jarek Puentes MD - Last Filed: 08/29/22 06:42> History of Present Illness HPI narrative: Patient a 27-year-old female who presents the emergency department with chief complaint of shortness of breath and chest tightness the patient reports that she used some THC via dabbing and reports that this evening she started getting more and more tightness in her chest and reported that she felt extremely short of breath patient reports she cannot get a good deep breath. <Jarek Puentes MD - Last Filed: 08/29/22 06:42> Related Data Home medications: Home Medications Medication Instructions Recorded Confirmed aripiprazole 2 mg tablet 2 mg PO DAILY 07/24/21 07/24/21 venlafaxine 75 mg tablet 75 mg PO DAILY 07/24/21 07/24/21 <Jarek Puentes MD - Last Filed: 08/29/22 06:42> Allergies/adverse reactions: Allergies Allergy/AdvReac Type Severity Reaction Status Date / Time No Known Allergies Allergy Verified 08/29/22 05:52 <Jarek Puentes MD - Last Filed: 08/29/22 06:42> Review of Systems Review of Systems: A 10 system review of systems was completed on the patient and is negative except for what is stated in the HPI. Nursing and ancillary documentation was reviewed. <Jarek Puentes MD - Last Filed: 08/29/22 06:42> PMFSH Past Medical History Medical History: Medical History ADHD Anxiety Depression History of hypertension <Jarek Puentes MD - Last Filed: 08/29/22 06:42> Surgical History Surgical History: Surgical History History of cholecystectomy <Jarek Puentes MD - Last Filed: 08/29/22 06:42> Family History Family History: Family History Mother Family history of thyroid disease Unknown Diabetes mellitus Family history of thyroid disease Other Family history of cardiovascular disease Family history of malignant neoplasm Hypertension <Jarek Puentes MD - Last Filed: 08/29/22 06:42> Social History Social History: Social History Smoking status: Never smoker Alcohol intake: current Substance use: current Substance use type: marijuana Gender identity (if verbalized by the patient): Female Spiritual care concerns: No <Jarek Puentes MD - Last Filed: 08/29/22 06:42> Exam Narrative: GENERAL: Well-appearing, well-nourished, and in no acute distress. HEAD: Normocephalic, atraumatic. EYES: PERRLA and EOMI. ENT: Nares clear, no rhinorrhea or epistaxis. Mucous membranes moist. NECK: Supple. CHEST: Diffuse wheezes bilaterally auscultation. No respiratory distress. Increased respiratory effort HEART: Regular rate and rhythm. No murmur heard. Normal peripheral pulses. ABDOMEN: Soft, nontender, nondistended, normal active bowel sounds. EXTREMITIES: Normal range of motion. No edema. SKIN: Warm, dry, no rash. NEURO: No focal deficits. Alert and oriented x3. PSYCH: Normal mood and affect. <Jarek Puentes MD - Last Filed: 08/29/22 06:42> Course Course Emergency Course: Discussed lab and imaging results. No PE. Patient does have possible pneumonia. It is possible she could have a chemical pneumonitis given that she was smoking concentrated THC through a water pipe. Treatment with albuterol, steroids, and azithromycin recommended. Patient verbalized understanding. Patient ambulatory in the ER without oxygen and a
[2022-08-29 06:43] LABS: D Dimer 0.63 ug/mL (<0.48)
[2022-08-29 09:22] LABS: Troponin I 0.013 ng/mL (0.000-0.034)
== END 2022-08-29 10:24 | disposition home or self-care (01) ==
PROVIDERS: Emergency Medicine; Emergency Provider Emergency Medicine; PCP Physician Assistant
DX: U07.0 Vaping-related disorder (principal); J68.0 Bronchitis and pneumonitis due to chemicals, gases, fumes and vapors; F12.90 Cannabis use, unspecified, uncomplicated; I10 Essential (primary) hypertension; F90.9 Attention-deficit hyperactivity disorder, unspecified type; F41.9 Anxiety disorder, unspecified; F32.A Depression, unspecified; R94.31 Abnormal electrocardiogram [ECG] [EKG]
CPT/HCPCS: 36415; 36600; 71045; 71275; 80053; 81025; 82805; 83605; 83735; 83880; 84484; 85025; 85380; 85610; 85730; 93005; 94640; 96374; 99284; J2930; Q9967

== ENCOUNTER 2023-05-21 15:32 | Outpatient (CLI) | payer MEDICAID, SELFPAY ==
[2023-05-21 16:00] VITALS: BMI 46.3
[2023-05-21 16:32] VITALS: BP 125/76; PULSE 136
[2023-05-21 16:41] LABS: Basophils Absolute Auto 0.1 K/mm3 (0.0-0.1); Basophils Percent Auto 0.5 % (0.2-1.2); Eosinophils Percent Auto 0.2 % (0-4.4); Hematocrit 38.1 % (37.0-47.0); Hemoglobin 12.1 g/dL (12.0-15.0); Immature Granulocyte Absolute 0.66 K/mm3 (0.00-0.031); Immature Granulocyte Percent A 4.7 % (0-0.5); Lymphocytes Absolute Auto 1.89 K/mm3 (0.9-3.2); Lymphocytes Percent Auto 13.3 % (18.3-44.2); Mean Corpuscular HGB Conc 31.8 g/dl (32-36); Mean Corpuscular Hemoglobin 28.5 pg (26-34); Mean Corpuscular Volume 89.9 fl (80-100); Monocytes Absolute Auto 1.1 K/mm3 (0.1-0.6); Monocytes Percent Auto 7.6 % (2.6-8.5); Neutrophils Absolute Auto 10.4 K/mm3 (1.3-6.7); Neutrophils Percent Auto 73.7 % (45.5-73.1); Platelet Count Result 293 k/mm3 (150-375); Red Blood Count 4.24 M/mm3 (4.2-5.4); Red Cell Distribution Width 13.9 % (11.5-14.5); White Blood Count 14.2 K/mm3 (4.5-10.0)
[2023-05-21 16:46] VITALS: BP 113/66; PULSE 113
[2023-05-21 16:48] LABS: Creatinine Urine 136.1 mg/dL; Total Protein Urine Random 7 mg/dL; Ur Ttl Prot Creatinine Ratio 0.05 mg/mg (0-0.20)
[2023-05-21 16:54] LABS: Alanine Aminotransferase 15 U/L (6-35); Alkaline Phosphatase 101 U/L (38-126); Anion Gap 8 mmol/L (8-16); Aspartate Amino Transferase 16 U/L (14-36); Bilirubin,Total 0.1 mg/dL (0.2-1.3); Blood Urea Nitrogen 10 mg/dL (7-17); Calcium 9.2 mg/dL (8.4-10.2); Carbon Dioxide 19 mmol/L (22-30); Chloride 107 mmol/L (98-107); Estimated Glomerular Filt Rate > 60; Glucose 110 mg/dL (65-110); Sodium 134 mmol/L (137-145); Uric Acid 3.8 mg/dL (2.5-7.5)
[2023-05-21 17:01] VITALS: BP 122/83; PULSE 121
[2023-05-21 17:15] LABS: Appearance Urine Cloudy (Clear); Bacteria Urine 4+ /hpf; Bilirubin Urine Negative (Negative); Blood Urine Negative (Negative); Color Urine Yellow (Yellow); Glucose Urine UA Negative (Negative); Ketones Urine Trace mg/dL (Negative); Leukocyte Esterase Ur Negative LEU/UL (Negative); Need Manual Microscopic Reviewed; Nitrate Urine Negative (Negative); Non Pathogenic Casts 0-2; Protein Urine 1+ mg/dL (Negative); Specific Grav Ur 1.024 (1.001-1.035); Squamous Epithelial Cell Urine Occasional /hpf (Few); Urobilinogen Urine 0.2 mg/dL (<2.0); pH Urine 5.5 (5.0-9.0)
[2023-05-21 17:16] VITALS: BP 118/74; PULSE 113
[2023-05-21 17:21] LABS: Add Urine Microscopic? YES
== END 2023-05-21 17:28 | disposition home or self-care (01) ==
LOC: ANHOBOP 15:40 → ANHLDR 05-27 06:22
PROVIDERS: PCP Physician Assistant; Visit Provider Obstetrics & Gynecology
DX: O13.9 Gestational [pregnancy-induced] hypertension without significant proteinuria, unspecified trimester (principal); Z3A.00 Weeks of gestation of pregnancy not specified
CPT/HCPCS: 36415; 59025; 80053; 81001; 82570; 84156; 84550; 85025; 87086; 99199

== ENCOUNTER 2023-05-24 21:10 | Observation (INO) | payer MEDICAID, SELFPAY ==
[2023-05-24] VITALS (27 sets, daily range): BP systolic 128–132; BP diastolic 73–80; PULSE 100–122; O2SAT 95–100; BMI 46.4
--- NOTE | 2023-05-24 22:30 | PC.NURSE ---
Updated Dr. Hong on pt, tracing, contractions, DFM, and blood pressure. Orders received to monitor pt another hour and discharge if not lashell.
--- NOTE | 2023-05-24 22:37 | OBADM ---
This patient, Rosana Marrero, admitted to the OB room OB Post [facility] for observation. Patient/family oriented to hospital policies and general routines including ID bracelet, bed and alarms, visiting hours, pain management, procedures, bathroom and other care routines, personal items, smoking policy, room service/diet, and visiting hours. Patient/Family are encouraged to report perceived risks to care and to ask questions if they do not understand what they are told or what they should do.
--- NOTE | 2023-06-12 12:40 | PM.OBTRLD ---
OB - Triage/Final Diagnosis Visit Information Comments/Additional reasons for admission: I have assessed the risk for this patient, Rosana Marrero, and determined that she would benefit from observation care. Final Diagnosis (1) False labor: Code(s): O47.9 - False labor, unspecified Status: Acute
== END 2023-05-24 23:56 | disposition home or self-care (01) ==
PROVIDERS: Admitting Provider Obstetrics & Gynecology; PCP Physician Assistant; Visit Provider Obstetrics & Gynecology
DX: O47.9 False labor, unspecified (principal); Z3A.29 29 weeks gestation of pregnancy
CPT/HCPCS: 59025; G0378; G0379

== ENCOUNTER 2024-02-06 01:22 | Emergency (ER) | payer OTHER, SELFPAY ==
[2024-02-06] VITALS (15 sets, daily range): BP systolic 128–145; BP diastolic 78–97; PULSE 61–84; RESP 17–20; TEMP 36.5–36.7; O2SAT 97–100
--- NOTE | ~2024-02-06 | CT_ITS ---
EXAMINATION: CT abdomen pelvis wo con DATE: 02/06/2024 05:24 INDICATION: Hernia. TECHNIQUE: Computed tomography (CT) of the abdomen and pelvis was performed without intravenous contr ast. Automated exposure control and iterative reconstruction technique were employed. The dose-length product was 1594.65 mGy-cm. COMPARISON: None. FINDINGS: The visualized portions of the lung bases are clear without pneumonia or pleural effusion. The heart size is normal. No pericardial effusion. The liver, spleen, pancreas, and adrenal glands ar e normal. There are changes of cholecystectomy. The kidneys are normal. There is an umbilical ventral hernia containing small bowel. There is a loop of small bowel at the entrance to the hernia with pro ximal and distal transition points, consistent with closed loop small bowel obstruction. The appendix is normal. There are no pathologically enlarged lymph nodes. There is no free intraperitoneal fluid. The bones are unremarkable. IMPRESSION: 1. Umbilical hernia containing small bowel with closed loop small bowel obstruction. Reviewed, dictated and finalized at location A. IMPRESSION: 1. Umbilical hernia containing small bowel with closed loop small bowel obstruc tion.
[2024-02-06 03:02] LABS: Basophils Percent Auto 0.4 % (0.2-1.2); Eosinophils Absolute Auto 0.1 K/mm3 (0-0.3); Eosinophils Percent Auto 1.2 % (0-4.4); Hematocrit 49.8 % (37.0-47.0); Hemoglobin 16.2 g/dL (12.0-15.0); Immature Granulocyte Absolute 0.05 K/mm3 (0.00-0.031); Immature Granulocyte Percent A 0.5 % (0-0.5); Lymphocytes Absolute Auto 2.45 K/mm3 (0.9-3.2); Lymphocytes Percent Auto 23.4 % (18.3-44.2); Mean Corpuscular HGB Conc 32.5 g/dl (32-36); Mean Corpuscular Hemoglobin 28.2 pg (26-34); Mean Corpuscular Volume 86.8 fl (80-100); Mean Platelet Volume 10.1 fl (7.4-10.4); Monocytes Absolute Auto 0.5 K/mm3 (0.1-0.6); Monocytes Percent Auto 5.2 % (2.6-8.5); Neutrophils Absolute Auto 7.3 K/mm3 (1.3-6.7); Neutrophils Percent Auto 69.3 % (45.5-73.1); Platelet Count Result 297 k/mm3 (150-375); Red Blood Count 5.74 M/mm3 (4.2-5.4); Red Cell Distribution Width 13.1 % (11.5-14.5); White Blood Count 10.5 K/mm3 (4.5-10.0)
[2024-02-06 03:14] LABS: Alanine Aminotransferase 36 U/L (6-35); Albumin Level 4.2 g/dL (3.5-5.1); Alkaline Phosphatase 114 U/L (38-126); Anion Gap 8 mmol/L (4-12); Aspartate Amino Transferase 30 U/L (14-36); Bilirubin,Total 0.4 mg/dL (0.2-1.3); Blood Urea Nitrogen 19 mg/dL (7-17); Carbon Dioxide 26 mmol/L (22-30); Chloride 105 mmol/L (98-107); Estimated CRCL calculation 108 ml/min; Estimated Glomerular Filt Rate > 60; Glucose 103 mg/dL (65-110); Lipase 99 U/L (23-300); Potassium 4.4 mmol/L (3.4-5.0); Sodium 139 mmol/L (137-145)
[2024-02-06 03:15] LABS: BEDSIDEPREGUCG Negative (Negative)
[2024-02-06 03:36] LABS: Add Urine Microscopic? YES; Appearance Urine Cloudy (Clear); Bacteria Urine 1+ /hpf; Bilirubin Urine Negative (Negative); Blood Urine 3+ (Negative); Color Urine Yellow (Yellow); Glucose Urine UA Negative (Negative); Ketones Urine Trace mg/dL (Negative); Leukocyte Esterase Ur Trace LEU/UL (Negative); Need Manual Microscopic Reviewed; Nitrate Urine Negative (Negative); Non Pathogenic Casts 0-2; Protein Urine 1+ mg/dL (Negative); RBC Urine >100 /hpf (0-2); Specific Grav Ur 1.025 (1.001-1.035); Squamous Epithelial Cell Urine Few /hpf (Few); Urobilinogen Urine 0.2 mg/dL (<2.0); WBC Urine 0-5 /hpf (0-3)
[2024-02-06] MEDS: ONDANSETRON INJ 4 MG/2 ML VIAL IV PUSH (05:07)
[2024-02-06] MEDS: MORPHINE SULFATE (*CRX) 4 MG/ML INJ IV PUSH (05:07)
--- NOTE | 2024-02-06 05:15 | PC.NURSE ---
Patient taken to CT via stretcher at this time.
--- NOTE | 2024-02-06 06:24 | ED.ABDPAIN ---
HPI - Abdominal Pain General Chief Complaint: Abdominal Pain Stated Complaint: abd pain/vomiting Time Seen by Provider: 02/06/24 04:45 History of Present Illness HPI narrative: 28-year-old female with a history of an umbilical hernia that she got after her last . She states that she was initially seen by previous surgeon and told they might need to be operated on to fix but she did not follow up outpatient. She presents today with nausea and vomiting and epigastric abdominal pain. She states her hernia was initially hard and was not able to be reduced. She states that slowly gone down over time but she still having discomfort in her epigastrium. Endorses nausea and vomiting. Endorses normal bowel function. No dysuria, hematuria. Denies any chance of . Was otherwise in her normal state of health denies any trauma. Related Data Home Medications Medication Instructions Recorded Confirmed aripiprazole 2 mg tablet 2 mg PO DAILY 07/24/21 07/24/21 venlafaxine 75 mg tablet 75 mg PO DAILY 07/24/21 07/24/21 Allergies Allergy/AdvReac Type Severity Reaction Status Date / Time No Known Allergies Allergy Verified 02/06/24 03:13 Review of Systems Review of Systems: As reviewed above in HPI [facility] Past Medical History Medical History ADHD Anxiety Depression History of hypertension Surgical History Surgical History History of cholecystectomy Family History Family History Mother Family history of thyroid disease Unknown Diabetes mellitus Family history of thyroid disease Other Family history of cardiovascular disease Family history of malignant neoplasm Hypertension Social History Social History Smoking status: Never smoker Alcohol intake: current Substance use: current Substance use type: marijuana Gender identity (if verbalized by the patient): Female Spiritual care concerns: No Exam Narrative: GENERAL: [Well-appearing, well-nourished, and in no acute distress.] HEAD: [Normocephalic, atraumatic.] EYES: [PERRLA and EOMI.] ENT: Nares clear, no rhinorrhea or epistaxis. Mucous membranes moist. NECK: Supple. CHEST: [Clear to auscultation. No respiratory distress.] HEART: [Regular rate and rhythm]. No murmur heard. [Normal peripheral pulses.] ABDOMEN: [Soft, nondistended], tender to palpation in the epigastrium, no rebound or guarding, palpable soft hernia that appears difficult to reduce, no overlying skin changes., [No rigidity or guarding] EXTREMITIES: Normal range of motion. [No edema.] SKIN: Warm, dry, no rash. NEURO: [No focal deficits]. Alert and oriented [x3.] PSYCH: [Normal mood and affect.] Course Vital Signs Vital signs: Vital Signs Temperature 36.7 C 02/06/24 01:26 Pulse Rate 84 02/06/24 01:26 Respiratory Rate 18 02/06/24 01:26 Blood Pressure 128/90 02/06/24 01:26 Pulse Oximetry 100 02/06/24 01:26 Oxygen Delivery Room Air 02/06/24 01:26 Temperature 36.7 C 02/06/24 01:26 Pulse Rate 76 02/06/24 05:07 Respiratory Rate 17 02/06/24 05:07 Blood Pressure 133/78 02/06/24 05:07 Pulse Oximetry 100 02/06/24 05:07 Oxygen Delivery Room Air 02/06/24 01:26 MDM - Abdominal Pain MDM Narrative Medical decision making narrative: 28-year-old female presenting with nausea vomiting and epigastric abdominal discomfort from a known hernia. She suffered a hernia after her last child. She states that she was going to get repaired outpatient but then never followed up with the surgeon. she presents today with concerns that her umbilical hernia is hard and difficult to reduce and causing nausea and obstruction. She is afebrile with normal reassuring vital signs, she is
--- NOTE | 2024-02-06 07:31 | PM.CNGS ---
Assessment and Plan Assessment and plan (1) Incarcerated incisional hernia: Code(s): K43.0 - Incisional hernia with obstruction, without gangrene <Delaney Wyatt MD - Last Filed: 02/06/24 08:22> Status: Acute <Delaney Wyatt MD - Last Filed: 02/06/24 08:22> Assessment and Plan: Reduced with gentle pressure in the emergency department, patient exam now benign, long discussion with patient regarding repair and she would like to proceed with elective repair as outpatient, did discuss abdominal binder and light activity restrictions until repair, follow-up this week to schedule repair <Delaney Wyatt MD - Last Filed: 02/06/24 08:22> (2) Small bowel obstruction: Code(s): K56.609 - Unspecified intestinal obstruction, unspecified as to partial versus complete obstruction <Delaney Wyatt MD - Last Filed: 02/06/24 08:22> Status: Acute <Delaney Wyatt MD - Last Filed: 02/06/24 08:22> Assessment and Plan: Exam benign status post reduction, see above <Delaney Wyatt MD - Last Filed: 02/06/24 08:22> History of Present Illness Consult details Consult date: 02/06/24 <Delaney Wyatt MD - Last Filed: 02/06/24 08:22> 02/06/24 <Omid Padron MD - Last Filed: 02/06/24 07:50> Reason for consult: hernia <Delaney Wyatt MD - Last Filed: 02/06/24 08:22> Requesting physician: Omid Padron MD <Delaney Wyatt MD - Last Filed: 02/06/24 08:22> Narrative: The patient is a 28-year-old female presenting to the emergency department complaining of severe periumbilical abdominal pain and bulging. The patient has a longstanding history umbilical hernia, however has never been this painful or hard. The patient reports that over the day yesterday the hernia popped out and became very hard. The patient reports the area was very painful. The patient also reports anorexia, nausea, emesis. Workup in the emergency department, including CT scan, was significant for incarcerated periumbilical hernia with closed loop small bowel obstruction. <Delaney Wyatt MD - Last Filed: 02/06/24 08:22> Review of Systems Review of Systems: All systems reviewed & are unremarkable except as noted in HPI and below <Delaney Wyatt MD - Last Filed: 02/06/24 08:22> PMFSH Past Medical History Medical History: Medical History ADHD Anxiety Depression History of hypertension <Delaney Wyatt MD - Last Filed: 02/06/24 08:22> Surgical History Surgical History: Surgical History History of cholecystectomy <Delaney Wyatt MD - Last Filed: 02/06/24 08:22> Family History Family History: Family History Mother Family history of thyroid disease Unknown Diabetes mellitus Family history of thyroid disease Other Family history of cardiovascular disease Family history of malignant neoplasm Hypertension <Delaney Wyatt MD - Last Filed: 02/06/24 08:22> Social History Social History: Social History Smoking status: Never smoker Alcohol intake: current Substance use: current Substance use type: marijuana Gender identity (if verbalized by the patient): Female Spiritual care concerns: No <Delaney Wyatt MD - Last Filed: 02/06/24 08:22> Meds Home Medications and Allergies Home medications: Home Medications Medication Instructions Recorded Confirmed Type aripiprazole 2 mg tablet 2 mg PO DAILY 07/24/21 07/24/21 History venlafaxine 75 mg tablet 75 mg PO DAILY 07/24/21 07/24/21 History albuterol sulfate 90 mcg/actuation 2 puff inhalation QID PRN 08/29/22 Rx aerosol inhaler shortness of breath or wheezing #8 grams azithromycin 250 mg tablet See Rx Instructions PO .COMPLEX #6 08/29/22 R
--- NOTE | 2024-02-06 07:39 | PC.NURSE ---
Dr Wyatt completed procedure at bedside. States pt can be discharged home to have outpatient follow-up
== END 2024-02-06 08:05 | disposition home or self-care (01) ==
PROVIDERS: Emergency Provider Student in an Organized Health Care Education/Training Program
DX: K43.0 Incisional hernia with obstruction, without gangrene (principal); K56.609 Unspecified intestinal obstruction, unspecified as to partial versus complete obstruction; I10 Essential (primary) hypertension; F90.9 Attention-deficit hyperactivity disorder, unspecified type; F41.9 Anxiety disorder, unspecified; F32.A Depression, unspecified; Z90.49 Acquired absence of other specified parts of digestive tract
CPT/HCPCS: 36415; 74019; 74176; 80053; 81001; 81025; 83690; 85025; 96374; 96375; 99284; J2270; J2405

== ENCOUNTER 2024-02-06 11:50 | Emergency (ER) | payer OTHER, SELFPAY ==
--- NOTE | ~2024-02-06 | XR_ITS ---
EXAMINATION: XR abdomen obstructive series DATE: 02/06/2024 12:38 INDICATION: Abdominal pain. TECHNIQUE: Upright and supine views of the abdomen on 3 radiographs were obtained. COMPARISON: CT abdomen and pelvis 02/06/2024 FINDINGS: There is a dilated loop of small bowel in the midabdomen. There is a small volume of stool in the colon, which is decompressed. No free intraperitoneal gas. IMPRESSION: 1. Dilated loop of small bowel, consistent with small bowel obstruction. Reviewed, dictated and finalized at location A.
[2024-02-06 11:52] VITALS: BP 145/96; PULSE 71; RESP 15; TEMP 36.4; O2SAT 100
--- NOTE | 2024-02-06 12:20 | ED.GENADULT ---
HPI - General Adult General Chief complaint: Abdominal Pain Stated complaint: abd pain Time Seen by Provider: 02/06/24 11:51 History of Present Illness HPI narrative: 28-year-old female present to the emergency department for evaluation for persistent abdominal pain. Patient was evaluated in the emergency department earlier in the day and was diagnosed with an incarcerated umbilical hernia. This was reduced by surgery. Patient initially felt improved and requested to be discharged to home. Patient did go home did take her pain medication and states she was having some difficulty having a bowel movement and is now complaining of increased abdominal pain. Patient does not feel that her hernia was re- incarcerated. Patient has declined a soapsuds enema to help with any potential constipation. Patient states that she now once the hernia fixed and is asking if she can be admitted for this. Patient is not in any apparent distress. Related Data Allergies Allergy/AdvReac Type Severity Reaction Status Date / Time No Known Allergies Allergy Verified 02/07/24 15:43 Review of Systems Review of Systems: All systems reviewed & are unremarkable except as noted in HPI and below PMFSH Past Medical History Medical History ADHD Anxiety Depression History of hypertension Surgical History Surgical History History of cholecystectomy Family History Family History Mother Family history of thyroid disease Unknown Diabetes mellitus Family history of thyroid disease Other Family history of cardiovascular disease Family history of malignant neoplasm Hypertension Social History Social History Smoking status: Never smoker Alcohol intake: current Substance use: current Substance use type: marijuana Other substance usage details: daily- smoking (concentrate) Gender identity (if verbalized by the patient): Female Spiritual care concerns: No Exam Narrative: APPEARANCE: Well appearing, no pain, no distress, well-nourished. HEAD: normocephalic, atraumatic. EYES: PERRLA/EOMI, conjunctivae clear. NOSE: Normal no drainage EARS:TMS clear with good light reflex. THROAT: Pharynx clear, no exudate. NECK: Supple. No adenopathy, no masses. RESPIRATORY: Airway patent, respirations nonlabored. Clear to auscultation bilaterally, no rales, rhonchi, wheezing. CARDIOVASCULAR: Regular rate and rhythm without murmurs rubs or gallops. ABDOMINAL: Soft nontender abdomen with no incarcerated hernia MUSCULOSKELETAL: Moves all extremities. Strength/ROM intact, No edema, No calf tenderness. NEURO: Alert. Cranial nerves II through XII intact. Good gait. Good coordination SKIN: Warm, dry. Normal Color Course Vital Signs Vital signs: Vital Signs Temperature 97.6 F 02/06/24 11:52 Pulse Rate 71 02/06/24 11:52 Respiratory Rate 15 02/06/24 11:52 Blood Pressure 145/96 H 02/06/24 11:52 Pulse Oximetry 100 02/06/24 11:52 Oxygen Delivery Room Air 02/06/24 11:52 Temperature 97.6 F 02/06/24 11:52 Pulse Rate 71 02/06/24 11:52 Respiratory Rate 15 02/06/24 11:52 Blood Pressure 145/96 H 02/06/24 11:52 Pulse Oximetry 100 02/06/24 11:52 Oxygen Delivery Room Air 02/06/24 11:52 Medical Decision Making [facility] Narrative Medical decision making narrative: 28-year-old female presents emergency department for evaluation for recurrent abdominal pain. Patient just had a hernia your reduced earlier today and states she was having worsening abdominal pain that has since improved. Case was rediscussed with surgery they are comfortable with patient being discharged home. Patient will have follow-up on Wednesday with surgery. Patient was advised to follow a clear liquid diet and provided Zofran for nause
== END 2024-02-06 13:36 | disposition home or self-care (01) ==
PROVIDERS: Emergency Provider Emergency Medicine
DX: R10.9 Unspecified abdominal pain (principal); Z90.49 Acquired absence of other specified parts of digestive tract
CPT/HCPCS: 74019; 99283

== ENCOUNTER 2024-02-10 00:46 | Day surgery (SDC) | payer OTHER, SELFPAY ==
--- NOTE | 2024-02-07 15:56 | PC.NURSE ---
Report to the Outpatient Waiting Room, entrance under the green pavilion located off [facility], at time 0730 on date 02/10/24. Planned Procedure Time: 0930.? Time changes happen often and if your time is changed the preop area will call you the afternoon before. - You and your visitor will be asked to self-screen and do not enter if you have any COVID symptoms. Please call surgeon if you need to reschedule. - A mask is optional within the hospital at this time. Patients may have clear liquids (water, carbonated beverages, clear teas, apple juice) until 3 hours prior to surgery with a maximum of 20 ounces. 0630 - No food from midnight until time of surgery and no smoking - Infants may have breast milk until 4 hours before surgery, infant formula 6 hours prior to surgery. - Children will be allowed to drink immediately following surgery.? If applicable, please bring a bottle or sippy cup to assist with drinking. Juice, water, soda, and popsicles are readily available.? For infants on formula, please bring formula the day of surgery.? Pacifiers are allowed. Take only the following medications with a SIP of water on the morning of surgery: oxycodone, zofran DO NOT STOP ANY OF YOUR OTHER PRESCRIPTION MEDICATIONS PRIOR TO SURGERY EXCEPT THE FOLLOWING Medications to discontinue per physician None Date to take last dose N/A Please no make-up, nail divehi, hairspray, perfume, deodorant, or body powder the day of surgery.? No jewelry (including any body piercings) or valuables the day of surgery, leave them at home.? Please take a shower or bath the night before, or the morning of, surgery with an antibacterial soap.? Wear comfortable, loose fitting clothing.? Children are encouraged to wear pajamas. - Jewelry must be removed prior to entering the operating room.? Rings and piercings that are not removed may be cut off. - The hospital will not accept responsibility for valuables.? - Please leave all valuables, including medications, at home the day of surgery. If you are going home after surgery, a licensed show horse driver must drive you home.? - NO public transportation without another adult if you receive anesthesia. - We recommend that an adult stay with you for 24 hours following discharge. - We also recommend that you do not drive, make important decision, drink alcoholic beverages, or take any drugs that were not prescribed by your health care provider for at least 24 hours after your discharge time. For Pediatric surgeries, we recommend two adults accompany the child home. Follow any additional instructions given to you from your surgeon. Telephone instructions given to Patient- Rosana Marrero and asked if any additional questions and then verbalized understanding. Patient advised to call surgeon office or pre surgery nurse liaison [phone] if any additional questions.
[2024-02-07 16:03] VITALS: BMI 44.6
[2024-02-10] VITALS (9 sets, daily range): BP systolic 130–149; BP diastolic 75–91; PULSE 74–108; RESP 14–20; TEMP 36.2–36.4; O2SAT 94–100
[2024-02-10] MEDS: ACETAMINOPHEN 500 MG TABLET 1000 MG PO (08:09)
[2024-02-10] MEDS: LACTATED RINGERS 1,000 ML 30 ML IV CONT ×2 (08:20→11:53)
[2024-02-10 08:49] LABS: BEDSIDEPREGUCG Negative (Negative)
[2024-02-10] MEDS: KETOROLAC 15 MG/ML VIAL (*BKC) IV PUSH (08:58)
[2024-02-10] MEDS: SCOPOLAMINE 1 MG PATCH 1 PATCH TRANSDERM (08:58)
--- NOTE | 2024-02-10 09:30 | WPDHPUPDATE1 ---
History and Physical Update Update Date/Time: 02/10/24 09:30 History and Physical has been reviewed, including an updated exam of the patient. There are NO changes in the patient's condition. Risks, benefits, and alternatives have been discussed and questions answered. Patient agrees to proceed with procedure. will setup for robotic assisted repair periumbilical incisional hernia with mesh
--- NOTE | 2024-02-10 09:33 | WPDANESEPPF ---
Anes - Initial Pre Proc Eval Procedure: Operation Date: 02/10/24 09:30 Proposed Procedures p Robotic Assisted Incarcerated Umbilical Hernia Repair with Mesh - Delaney Wyatt MD Date/Time: 02/10/24 09:33 Surgeon: Delaney Wyatt MD Pre Op Diagnosis: incarcerated umbilical hernia Patient Data Age: 28 Gender: F Height: 1.63 m Weight: 120 kg Last Vital Signs Temp 97.2 F L 02/10/24 08:43 Pulse 102 H 02/10/24 08:43 Resp 16 02/10/24 08:43 BP 149/91 H 02/10/24 08:43 Pulse Ox 98 02/10/24 08:43 O2 Del Method Room Air 02/10/24 08:43 Allergies Allergy/AdvReac Type Severity Reaction Status Date / Time No Known Allergies Allergy Verified 02/10/24 08:00 Home Medications Medication Instructions Recorded Confirmed Type ondansetron 4 mg disintegrating 4 mg PO Q8H PRN nausea and 02/06/24 02/07/24 Rx tablet vomiting #20 tabs oxycodone 5 mg capsule 5 mg PO Q8H PRN pain #10 caps 02/06/24 02/07/24 Rx Laboratory Tests 02/10/24 08:43 POC Urine HCG, Qual Negative (Negative) Patient hx anesthesia problems: post op nausea/vomiting Family hx anesthesia problems: none Results Review: All pre-operative results and documents have been reviewed as part of the pre-operative evaluation. [facility] Past Medical History Medical History ADHD Anxiety Depression History of hypertension Surgical History Surgical History History of cholecystectomy Family History Family History Mother Family history of thyroid disease Unknown Diabetes mellitus Family history of thyroid disease Other Family history of cardiovascular disease Family history of malignant neoplasm Hypertension Social History Social History Smoking status: Never smoker Alcohol intake: current Substance use: current Substance use type: marijuana Other substance usage details: daily- smoking (concentrate) Gender identity (if verbalized by the patient): Female Spiritual care concerns: No Anes - Eval Final PreProcedure Day of Procedure 02/10/24 09:33 Patient weight: morbidly obese Heart: regular rate and rhythm Lungs: clear to auscultation Airway: Mallampati scale class III Neurological: alert and oriented Last oral intake: >/= 8 hours ASA classification: III Emergent: no Anesthetic plan: proceed Anesthesia type and monitoring: general ETT and standard monitoring Results Review: All pre-operative results and documents have been reviewed as part of the pre-operative evaluation. Informed Consent: The patient's anesthetic plan and its attendant risks and benefits were discussed with the patient/family/POA. Questions were solicited and answers provided to the satisfaction of the patient/family/POA.
--- NOTE | 2024-02-10 11:47 | P.OP_ITS ---
Procedure Note - Detailed Date of Procedure 02/10/24 Pre-op Diagnosis incarcerated periumbilical incisional hernia Post-op Diagnosis Same Procedure Performed robotic assisted repair incarcerated periumbilical incisional mesh defect measu ring approximately 4 cm Surgeon Delaney Wyatt MD Anesthesia General Indications 28-year-old female initially presented to the emergency department with incarcerated periumbilical ventral incisional hernia with resultant closed loop small bowel obstruction. The hernia was actually able to be reduced in emergency department and the patient was sent home with instructions for urgent repair this week. Findings Incarcerated periumbilical ventral incisional hernia with large amount of small-bowel, defect measuring approximately 4 cm Description of Procedure The patient was taken the operating room placed in the supine position. After adequate induction of general anesthesia, the patient was prepped and draped in normal sterile fashion. A time-out was then done to verify the patient's identity as well as the procedure being performed. I began by making a 8 mm incision in the left upper quadrant. Through this, a Veress needle was placed into the peritoneal cavity and CO2 gas was insufflated. After adequate pneumoperitoneum was achieved, a 8 mm trocar was placed through this incision. I then placed the laparoscope through this trocar site and under direct visualization I placed a 8 mm port in the left mid abdomen as well as an additional 8 mm port in the left lower abdomen. The robot was then docked to the 3 port sites. I then went to the robotic console. I began by identifying the hernia. A moderate-sized incarcerated periumbilical incisional hernia was noted. There was noted to be large amount of incarcerated small intestine. This was carefully reduced back into the abdominal cavity. I then created a preperitoneal flap approximately 6 cm lateral to the hernia. This flap was carried widely superior and inferior to the defect. The hernia sac was noted to contain a large amount of preperitoneal fat. Once reduced, I also reduced and dissected out the hernia sac. I then carried the flap distally past the hernia. I then closed the approximately 4 cm defect with 0 strata fix suture. I then placed a 15 x 10 cm Ventralight mesh into the abdominal cavity. The positional stitch was placed in the middle of the mesh and brought up centering the mesh over the defect. Once this was done, I used 2 O vicryl suture to suture the mesh to the abdominal wall. Once the mesh was sutured in, I was happy with our tension-free repair. The mesh was noted to have good overlap of the defect. I then closed the flap with 2 0 V lock. At this point, the robot was undocked and all ports were removed. All port sites were then closed with 4 O Monocryl subcuticular suture. The patient tolerated the procedure well, is extubated in the operating room postoperative, and will be transferred to the recovery room in stable condition. Implants 15 x 10 cm Ventralight mesh Estimated Blood Loss 20 Drains No Packing No Pathology None sent Complications No immediate complications Condition Stable Disposition PACU [facility] Billing Surgery - Charge Forward: Surgery Billing
[2024-02-10] MEDS: fentaNYL CITRATE INJ (*CRX) 100 MCG/2 ML VIAL 25 MCG IV PUSH ×6 (12:14→12:34)
[2024-02-10] MEDS: ONDANSETRON INJ 4 MG/2 ML VIAL IV PUSH (12:19)
[2024-02-10] MEDS: diphenhydrAMINE HCl INJ 50 MG/ML VIAL 12.5 MG IV PUSH (13:06)
== END 2024-02-10 13:53 | disposition home or self-care (01) ==
PROVIDERS: Visit Provider Surgery
PROC: (CPT 49594; principal; 2024-02-10 09:30)
DX: K42.0 Umbilical hernia with obstruction, without gangrene (principal); I10 Essential (primary) hypertension; F41.9 Anxiety disorder, unspecified; F32.A Depression, unspecified; F90.9 Attention-deficit hyperactivity disorder, unspecified type; F12.90 Cannabis use, unspecified, uncomplicated; E66.01 Morbid (severe) obesity due to excess calories; Z68.42 Body mass index [BMI] 45.0-49.9, adult; Z79.891 Long term (current) use of opiate analgesic; Z98.890 Other specified postprocedural states; Z90.49 Acquired absence of other specified parts of digestive tract; Z80.9 Family history of malignant neoplasm, unspecified; Z82.49 Family history of ischemic heart disease and other diseases of the circulatory system
CPT/HCPCS: 49594; S2900; 36415; 86850; 86900; 86901; A9270; C1781; J1100; J1200; J1885; J2003; J2250; J2405; J2704; J3010; J7120